=== PATIENT | male | born 1935 | race Caucasian/White ===

== ENCOUNTER 2024-01-10 19:40 | Inpatient (IN) ==
--- NOTE | 2024-01-10 19:57 | Emergency Department Note ---
Impression & Plan Pneumonia ADMIT ED Provider Note HPI: History obtained from patient. 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 Patient stated his cough is gotten the point where he is having trouble breathing at home. Patient denies any chest pain, denies any fever. Patient does exhibit a harsh cough on arrival. ROS: - Per HPI Differential Diagnosis: Sepsis, pneumonia, viral upper respiratory infection with cough, COPD exacerbation, symptomatic anemia,, amongst other potential pathologies. *Outpatient medications and allergy history reviewed. 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 Patient had desaturations to 88 to 89% while here in the ED with his coughing bouts and therefore was placed on nasal cannula oxygen with good improvement. Lab work shows a leukocytosis of 15.2, hemoglobin is reduced at 7.9 which appears to be slightly worse than the patient's baseline, he was therefore ordered 1 unit packed red blood cells. Venous blood gas shows a normal pH. CMP shows baseline chronic kidney disease, troponin is mildly elevated at 31.5, BNP is mildly elevated at 418. Chest x-ray does appear to show a left-sided pneumonia per my interpretation. Viral panel testing was obtained and the patient is positive for enterovirus/rhinovirus. I suspect he likely started as a viral infection and has now a superimposed bacterial pneumonia with his leukocytosis, he does have coarse bilateral breath sounds with some expiratory wheezing and therefore was given a breathing treatment here in the ED. The patient remained otherwise stable on nasal cannula oxygen, with his symptomatic anemia, shortness of breath, and evidence of pneumonia on chest x-ray I do feel he should be admitted to the hospital for further care. Patient's presentation was discussed with the on-call hospitalist, Dr. Sharpe, and the patient was placed for admission in stable condition. Consultants/Discussions held with other healthcare providers: -Hospitalist, Dr. Sharpe Disposition discussion held by myself with: -Patient Diagnosis: 1. Symptomatic anemia, acute 2. Left-sided pneumonia, acute 3. Leukocytosis, acute 4. Cough, acute 5. Enterovirus/rhinovirus PCR testing positive, acute 6. Elevated high-sensitivity troponin level, acute Disposition: Admission Maicol Pike DO Emergency Medicine Past Med/Surg History Problem List (Updated 01/11/24 @ 01:28 by Maicol Pike DO) Pneumonia (Acute) Spinal stenosis, lumbar region with neurogenic claudication (Chronic) High cholesterol HTN (hypertension), benign Medical History (Updated 01/11/24 @ 01:28 by Maicol Pike DO) Bilateral cataracts Afib Surgical History (System 08/04/19 @ 11:07 by Samia Lam) S/P triple vessel bypass Family History (System 08/04/19 @ 11:07 by Samia Lam) Mother Hypertension Sister Breast cancer Social History (System 08/04/19 @ 11:07 by Samia Lam) Smoking Status: Never smoker Preferred Language: Malawian Communication Ability: Effective Visual Impairment: Limited Hearing Ability: Normal Edge Stripper Required: No Beliefs That Will Affect Care: None marital status: Current Living Situation: Spouse current occupational status: retired Feels Safe at Home: Yes Allergies Allergies Allergy/AdvReac Type Severity Reaction Status Date / Time No Known Allergies Allergy Verified 08/04/19 11:07 Home Meds Home Medications Medication Instructions Recorded Confirmed acetaminophen 500 mg tablet 500 mg PO BID 07/23/19 01/10/24 (Tylenol Extra Strength) aspirin 81 mg tablet,delayed 81 mg PO DAILY 07/23/19 01/10/24 release atorvastatin 40 mg tablet 40 mg PO QPM 07/23/19 01/10/24 cetirizine 5 mg chewable tablet 5 mg PO DAILY PRN Allergy Symptoms 07/23/19 01/10/24 coenzyme Q10 100 mg capsule (Co 100 mg PO DAILY 07/23/19 01/10/24 Q-10) cranberry 1,000 mg capsule 1,000 mg PO DAILY 07/23/19 01/10/24 finasteride 5 mg tablet 5 mg PO DAILY 07/23/19 01/10/24 fluticasone propionate 50 1 sprays intranasal DAILY PRN 07/23/19 01/10/24 mcg/actuation nasal Allergy Symptoms spray,suspension (Flonase Allergy Relief) potassium chloride 10 mEq 10 meq PO DAILY 07/23/19 01/10/24 tablet,extended release (Klor-Con) vitamins A,C,M-cqni-auwzay 4,296 1 cap PO BID 07/23/19 01/10/24 mcg-226 mg-90 mg capsule (PreserVision AREDS) albuterol sulfate 2.5 mg/3 mL mg continuous nebulization PRN 01/10/24 (0.083 %) solution for nebulization Shortness Of Breath Or Wheezing allopurinol 300 mg tablet 300 mg PO QAM 01/10/24 01/10/24 alprazolam 0.5 mg tablet 0.5 mg PO BID PRN Anxiety 01/10/24 01/10/24 azelastine 137 mcg (0.1 %) nasal 2 spray intranasal QAM 01/10/24 01/10/24 spray benzonatate 100 mg capsule 100 mg PO TID PRN Cough 01/10/24 01/10/24 budesonide-formoterol HFA 160 2 puff inhalation DAILY 01/10/24 01/10/24 mcg-4.5 mcg/actuation aerosol inhaler (Symbicort) citalopram 10 mg tablet 10 mg PO QAM 01/10/24 01/10/24 methotrexate sodium 2.5 mg tablet 2.5 mg PO WK 01/10/24 01/10/24 olmesartan 20 mg tablet 20 mg PO QAM 01/10/24 01/10/24 torsemide 20 mg tablet 20 mg PO QAM 01/10/24 01/10/24 Results & Data (ED) Vital Signs Vital Signs - 24 hr 01/10/24 19:33 01/10/24 19:33 01/10/24 19:47 Temperature Temperature Source Pulse Rate Respiratory Rate Respiratory Effort / Characteristics Short of Breath Respiratory Depth Respiratory Pattern Regular Blood Pressure Blood Pressure Mean Blood Pressure Position Pulse Oximetry 92 Oxygen Delivery Method Room Air Room Air Room Air Oxygen Flow Rate 92 92 Sepsis Recent Fever Within 48 Hours Sepsis New/Unexplained Change in Mental Status Sepsis Action Taken by Nursing 01/10/24 19:47 01/10/24 20:00 01/10/24 20:02 Temperature 37.5 C Temperature Source Oral Pulse Rate 101 H 86 84 Respiratory Rate 24 20 Respiratory Effort / Characteristics Short of Breath Respiratory Depth Normal Respiratory Pattern Blood Pressure 164/69 H 136/62 Blood Pressure Mean 100 105 Blood Pressure Position Sitting Pulse Oximetry 92 97 Oxygen Delivery Method Room Air Nasal Cannula Oxygen Flow Rate 4 Sepsis Recent Fever Within 48 Hours No Sepsis New/Unexplained Change in Mental Status No Sepsis Action Taken by Nursing Physician Notified 01/10/24 20:30 01/10/24 21:00 01/10/24 21:30 Temperature Temperature Source Pulse Rate 79 85 70 Respiratory Rate 18 20 20 Respiratory Effort / Characteristics Respiratory Depth Respiratory Pattern Blood Pressure 126/65 133/61 120/54 L Blood Pressure Mean 91 94 92 Blood Pressure Position Pulse Oximetry 96 99 99 Oxygen Delivery Method Nasal Cannula Nasal Cannula Nasal Cannula Oxygen Flow Rate 4 4 4 Sepsis Recent Fever Within 48 Hours Sepsis New/Unexplained Change in Mental Status Sepsis Action Taken by Nursing Laboratory Data 01/10/24 19:49 01/10/24 19:49 Lab Results 01/10/24 01/10/24 01/10/24 Range/Units 19:44 19:49 21:03 WBC 15.20 H (4.8-10.8) K/ul RBC 2.12 L (4.70-6.10) M/uL Hgb 7.9 L (14.0-18.0) g/dl Hct 24.1 L (42.0-52.0) % MCV 113.7 H (80.0-100.0) fL MCH 37.3 H (25.0-34.0) pg MCHC 32.8 (32.0-36.0) g/dL RDW Std Deviation 63.6 H (36.4-46.3) fL RDW Coeff of Ant 15.3 H (11.5-14.5) % Plt Count 367 (130-400) K/uL MPV 9.0 L (9.4-12.4) fL Immature Gran % (Auto) 0.4 % Neut % (Auto) 83.1 % Lymph % (Auto) 5.3 % [place] % (Auto) 5.6 % Eos % (Auto) 5.3 % Baso % (Auto) 0.3 % Neut # (Auto) 12.63 H (1.40-6.50) K/uL Lymph # (Auto) 0.81 L (1.20-3.40) K/uL [place] # (Auto) 0.85 H (0.11-0.59) K/uL Eos # (Auto) 0.80 H (0.00-0.50) K/uL Baso # (Auto) 0.05 (0.00-0.20) K/uL Immature Gran # (Auto) 0.06 (0.01-0.20) K/uL Poikilocytosis Present Tear Drop Cells 1+ Ovalocytes 2+ PT 11.2 (9.0-12.0) Seconds INR 1.0 (0.9-1.1) VBG pH 7.39 (7.36-7.41) VBG pCO2 40 (38-50) mmHg VBG pO2 47 mmHg VBG HCO3 24 mmol/L VBG O2 Saturation 78.7 % VBG Base Excess -0.7 mEq/L Sodium 134 L (136-145) mmol/L Potassium 4.8 (3.5-5.1) mmol/L Chloride 102 (98-107) mmol/L Carbon Dioxide 24 (21-32) mmol/L Anion Gap 8 (3-11) BUN 31 H (6-23) mg/dl Creatinine 2.19 H (0.6-1.4) mg/dl Est Cr Clr Drug Dosing 29.6 ml/min eGFR 28.61 BUN/Creatinine Ratio 14.2 (10-20) Glucose 123 H (70-99(Fasting)) mg/dl Calcium 8.9 (8.6-10.3) mg/dl Magnesium 1.8 (1.7-2.4) mg/dl Total Bilirubin 0.5 (0.2-1.0) mg/dl AST 26 (13-39) U/L ALT 27 (7-52) U/L Alkaline Phosphatase 83 (34-104) U/L Troponin I High Sens 31.5 H (0-20) pg/ml B-Natriuretic Peptide 418 H (0-100) pg/ml Total Protein 6.5 (6.0-8.3) gm/dl Albumin 3.9 (3.4-5.0) gm/dl Globulin 2.6 (2.5-4.0) gm/dl Albumin/Globulin Ratio 1.5 (0.9-2) Adenovirus (PCR) Not Detected (NotDetected) B. pertussis DNA (PCR) Not Detected (NotDetected) B.parapertussis DNA PCR Not Detected (NotDetected) C. pneumoniae DNA (PCR) Not Detected (NotDetected) Coronavirus OC43 (PCR) Not Detected (NotDetected) Coronavirus HKU1 (PCR) Not Detected (NotDetected) Coronavirus 229E (PCR) Not Detected (NotDetected) SARS-CoV-2 (PCR) Not Detected (NotDetected) Coronavirus NL63 (PCR) Not Detected (NotDetected) Human Metapneumovir PCR Not Detected (NotDetected) Influenza Type A (PCR) Not Detected (NotDetected) Influenza Type B (PCR) Not Detected (NotDetected) M. pneumoniae (PCR) Not Detected (NotDetected) Parainfluenza 1 (PCR) Not Detected (NotDetected) Parainfluenza 2 (PCR) Not Detected (NotDetected) Parainfluenza 3 (PCR) Not Detected (NotDetected) Parainfluenza 4 (PCR) Not Detected (NotDetected) RSV (PCR) Not Detected (NotDetected) Entero/Rhino (PCR) DETECTED A (NotDetected) Blood Type Blood Type Recheck Antibody Screen Crossmatch 01/10/24 01/10/24 Range/Units 21:12 21:13 WBC (4.8-10.8) K/ul RBC (4.70-6.10) M/uL Hgb (14.0-18.0) g/dl Hct (42.0-52.0) % MCV (80.0-100.0) fL MCH (25.0-34.0) pg MCHC (32.0-36.0) g/dL RDW Std Deviation (36.4-46.3) fL RDW Coeff of Ant (11.5-14.5) % Plt Count (130-400) K/uL MPV (9.4-12.4) fL Immature Gran % (Auto) % Neut % (Auto) % Lymph % (Auto) % [place] % (Auto) % Eos % (Auto) % Baso % (Auto) % Neut # (Auto) (1.40-6.50) K/uL Lymph # (Auto) (1.20-3.40) K/uL [place] # (Auto) (0.11-0.59) K/uL Eos # (Auto) (0.00-0.50) K/uL Baso # (Auto) (0.00-0.20) K/uL Immature Gran # (Auto) (0.01-0.20) K/uL Poikilocytosis Tear Drop Cells Ovalocytes PT (9.0-12.0) Seconds INR (0.9-1.1) VBG pH (7.36-7.41) VBG pCO2 (38-50) mmHg VBG pO2 mmHg VBG HCO3 mmol/L VBG O2 Saturation % VBG Base Excess mEq/L Sodium (136-145) mmol/L Potassium (3.5-5.1) mmol/L Chloride (98-107) mmol/L Carbon Dioxide (21-32) mmol/L Anion Gap (3-11) BUN (6-23) mg/dl Creatinine (0.6-1.4) mg/dl Est Cr Clr Drug Dosing ml/min eGFR BUN/Creatinine Ratio (10-20) Glucose (70-99(Fasting)) mg/dl Calcium (8.6-10.3) mg/dl Magnesium (1.7-2.4) mg/dl Total Bilirubin (0.2-1.0) mg/dl AST (13-39) U/L ALT (7-52) U/L Alkaline Phosphatase (34-104) U/L Troponin I High Sens (0-20) pg/ml B-Natriuretic Peptide (0-100) pg/ml Total Protein (6.0-8.3) gm/dl Albumin (3.4-5.0) gm/dl Globulin (2.5-4.0) gm/dl Albumin/Globulin Ratio (0.9-2) Adenovirus (PCR) (NotDetected) B. pertussis DNA (PCR) (NotDetected) B.parapertussis DNA PCR (NotDetected) C. pneumoniae DNA (PCR) (NotDetected) Coronavirus OC43 (PCR) (NotDetected) Coronavirus HKU1 (PCR) (NotDetected) Coronavirus 229E (PCR) (NotDetected) SARS-CoV-2 (PCR) (NotDetected) Coronavirus NL63 (PCR) (NotDetected) Human Metapneumovir PCR (NotDetected) Influenza Type A (PCR) (NotDetected) Influenza Type B (PCR) (NotDetected) M. pneumoniae (PCR) (NotDetected) Parainfluenza 1 (PCR) (NotDetected) Parainfluenza 2 (PCR) (NotDetected) Parainfluenza 3 (PCR) (NotDetected) Parainfluenza 4 (PCR) (NotDetected) RSV (PCR) (NotDetected) Entero/Rhino (PCR) (NotDetected) Blood Type O Positive Blood Type Recheck O Positive Antibody Screen NEGATIVE Crossmatch See Detail Administered Medications Discontinued Medications Albuterol (Albut/Ipratrop 3mg/0.5mg Neb 3 Ml Vial) 3 ml NEB NOW STA; Protocol Stop: 01/10/24 19:57 Last Admin: 01/10/24 20:03 Dose: 3 ml Documented By: TAMARA Ceftriaxone Sodium (Rocephin) 2,000 mg in 50 mls @ 100 mls/hr IV NOW STA Stop: 01/10/24 21:35 Last Infusion: 01/10/24 21:51 Dose: Infused Documented By: Admin: 01/10/24 21:21 Dose: 100 mls/hr Documented By: TAMARA Doxycycline Hyclate 100 mg/ (Dextrose) 100 mls @ 50 mls/hr IV ONE ONE Stop: 01/10/24 23:29 Last Admin: 01/10/24 21:55 Dose: 50 mls/hr Documented By: TAMARA Magnesium Sulfate/Dextrose (Magnesium Sulfate / D5w) 1 gm in 100 mls @ 50 mls/hr IV ONE ONE Stop: 01/11/24 00:29 Last Admin: 01/10/24 22:47 Dose: 50 mls/hr Documented By: TAMARA Methylprednisolone (Methylprednisolone 125 Mg/2 Ml Vial) 40 mg IV NOW STA Stop: 01/10/24 22:18 Last Admin: 01/10/24 22:42 Dose: 40 mg Documented By: TAMARA Imaging Data Radiologist's Impression: Chest X-Ray 01/10/24 19:55 Exam(s): XR CXR 1 VIEW EXAM: XR Chest, 1 View CLINICAL HISTORY: Dyspnea. TECHNIQUE: Frontal view of the chest. COMPARISON: No relevant prior studies available. FINDINGS: Lungs: Bilateral airspace opacities may represent pulmonary edema and/or atypical infection. Pleural space: Moderate left pleural effusion. No pneumothorax. Heart: Cardiomegaly. Mediastinum: Unremarkable. Normal mediastinal contour. Bones/joints: Degenerative changes of the spine are noted. No acute fracture. Other findings: There is a left [id number]. IMPRESSION: 1. Bilateral airspace opacities may represent pulmonary edema and/or atypical infection. 2. Cardiomegaly. 3. Moderate left pleural effusion. Electronically signed by: Carolina Cabello MD 01/10/24 22:26 PM Discharge Plan Visit Data Chief Complaint: Shortness of Breath/Dyspnea Stated Complaint: Shortness of Breath/Dyspnea ED Provider: Maicol Pike Discharge Problem: Pneumonia Patient Disposition: Admitted As Inpatient Discharge Instructions Interventions: ED Discharge Assessment Last Done: 01/10/24 22:55
[2024-01-10] MEDS: ALBUT/IPRATROP 3MG/0.5MG NEB 3 ML VIAL NEB STA (20:03)
[2024-01-10 20:11] LABS: Basophils # (auto) 0.05 K/uL (0.00-0.20); Basophils % (auto) 0.3 %; Eosinophils % (auto) 5.3 %; Hematocrit (blood only) 24.1 % (42.0-52.0); Hemoglobin 7.9 g/dl (14.0-18.0); Immature Granulocytes # (auto) 0.06 K/uL (0.01-0.20); Immature Granulocytes % (auto) 0.4 %; Lymphocytes # (auto) 0.81 K/uL (1.20-3.40); Lymphocytes % (auto) 5.3 %; Mean Corpuscular Hemoglobin 37.3 pg (25.0-34.0); Mean Corpuscular Hgb Conc 32.8 g/dL (32.0-36.0); Mean Corpuscular Volume 113.7 fL (80.0-100.0); Monocytes # (auto) 0.85 K/uL (0.11-0.59); Monocytes % (auto) 5.6 %; Neutrophils # (auto) 12.63 K/uL (1.40-6.50); Neutrophils % (auto) 83.1 %; Platelet Count 367 K/uL (130-400); RDW Coefficient of Variation 15.3 % (11.5-14.5); RDW Standard Deviation 63.6 fL (36.4-46.3); Red Blood Count 2.12 M/uL (4.70-6.10)
[2024-01-10 20:30] LABS: Albumin Globulin Ratio 1.5 (0.9-2); Albumin Level 3.9 gm/dl (3.4-5.0); BUN Creatinine Ratio 14.2 (10-20); Bilirubin,Total 0.5 mg/dl (0.2-1.0); Calcium 8.9 mg/dl (8.6-10.3); Creatinine Clr Calc Pharmacy 29.6 ml/min; Globulin 2.6 gm/dl (2.5-4.0); Potassium 4.8 mmol/L (3.5-5.1); Total Protein 6.5 gm/dl (6.0-8.3)
[2024-01-10 20:35] LABS: Ovalocytes 2+; Poikilocytosis Present; Tear Drop Cells 1+
[2024-01-10 20:37] LABS: Troponin I High Sensitivity 31.5 pg/ml (0-20)
[2024-01-10 20:47] LABS: Prothrombin Time 11.2 Seconds (9.0-12.0)
[2024-01-10] MEDS ORDERED: SODIUM CHLORIDE 0.9% 50 ML IV PRN (20:51)
[2024-01-10 20:53] LABS: Adenovirus PCR Not Detected (NotDetected); Bordetella parapertussis PCR Not Detected (NotDetected); Bordetella pertussis PCR Not Detected (NotDetected); Chlamydia pneumoniae PCR Not Detected (NotDetected); Coronavirus 229E PCR Not Detected (NotDetected); Coronavirus CoV-2 (COVID19)PCR Not Detected (NotDetected); Coronavirus HKU1 PCR Not Detected (NotDetected); Coronavirus NL63 PCR Not Detected (NotDetected); Coronavirus OC43PCR Not Detected (NotDetected); Human Metapneumovirus PCR Not Detected (NotDetected); Influenza A PCR Not Detected (NotDetected); Influenza B PCR Not Detected (NotDetected); Mycoplasma pneumoniae PCR Not Detected (NotDetected); Parainfluenza Virus 1 PCR Not Detected (NotDetected); Parainfluenza Virus 2 PCR Not Detected (NotDetected); Parainfluenza Virus 3 PCR Not Detected (NotDetected); Parainfluenza Virus 4 PCR Not Detected (NotDetected); Respiratory Syncytial VirusPCR Not Detected (NotDetected); Rhinovirus/Enterovirus PCR DETECTED (NotDetected)
[2024-01-10] MEDS ORDERED: AZITHROMYCIN 500 MG VIAL IV ONE (21:06)
[2024-01-10] MEDS ORDERED: AZITHROMYCIN 500 MG in SODIUM CHLORIDE 0.9% 250 ML IV ONE (21:06)
[2024-01-10 21:13] LABS: Base Excess VBG -0.7 mEq/L; HCO3 VBG 24 mmol/L; Oxygen Saturation VBG 78.7 %; PCO2 VBG 40 mmHg (38-50); PO2 VBG 47 mmHg; pH VBG 7.39 (7.36-7.41)
[2024-01-10] MEDS: cefTRIAXone SODIUM 2,000 MG/50 ML BAG IV STA (21:21)
[2024-01-10 21:43] LABS: Magnesium 1.8 mg/dl (1.7-2.4)
--- NOTE | 2024-01-10 21:46 | History & Physical Report ---
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 Heparin subcu Full code Patient expressed dissatisfaction with current [facility] PCP and oncologist. He has decided to follow-up Dr. Goss of [facility] for oncology. Expressed interest in setting up PCP services with [facility] following discharge. Text document was generated using [employer] voice recognition software. It may contain grammatical or spelling errors. Kindly contact undersigned for clarification of any documentation item in question. History of Present Illness Chief Complaint: Worsening cough, SOB. Primary Care Provider: Willi Staley MD History obtained from patient and records. 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 4 months history of junky cough symptoms with congestion and SOB. Denies aspiration. No weight gain as per patient. No chest pain. Outpatient chest x-ray last September 2023 showed 1. Distortion/scarring at the left lateral costophrenic sulcus is unchanged on the frontal view however the posterior costophrenic sulcus is newly blunted, potentially reflecting combination of a new, small pleural effusion and underlying pleuroparenchymal scarring postoperatively. 2. 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 Advair initiated for airway inflammation and outpatient course of Augmentin and prednisone prescribed by [facility] imaging technologist for bronchitis/sinusitis. Minimal response to treatment as per patient. Worsening symptoms noted the past week. Junky cough productive of yellow green sputum. Not sure about sick contacts. Left leg more swollen than usual. Denies abdominal pain, denies black/bloody stools/hematuria. Chronic back pain as per patient. Ceftriaxone and 1 unit administered at the ER. Medical History as above Surgical History : Back surgery, carpal tunnel surgery, dental surgery, CABG, vascular procedures, tonsillectomy, cataract surgery Family History : Heart disease, breast cancer, stomach cancer Personal/Social history : Non-smoker, occasional EtOH intake, retired businessman Allergies Allergy/AdvReac Type Severity Reaction Status Date / Time No Known Allergies Allergy Verified 08/04/19 11:07 Home Medications Medication Instructions Recorded Confirmed Type acetaminophen 500 mg tablet 500 mg PO BID 07/23/19 01/10/24 History (Tylenol Extra Strength) aspirin 81 mg tablet,delayed 81 mg PO DAILY 07/23/19 01/10/24 History release atorvastatin 40 mg tablet 40 mg PO QPM 07/23/19 01/10/24 History cetirizine 5 mg chewable tablet 5 mg PO DAILY PRN Allergy Symptoms 07/23/19 01/10/24 History coenzyme Q10 100 mg capsule (Co 100 mg PO DAILY 07/23/19 01/10/24 History Q-10) cranberry 1,000 mg capsule 1,000 mg PO DAILY 07/23/19 01/10/24 History finasteride 5 mg tablet 5 mg PO DAILY 07/23/19 01/10/24 History fluticasone propionate 50 1 sprays intranasal DAILY PRN 07/23/19 01/10/24 History mcg/actuation nasal Allergy Symptoms spray,suspension (Flonase Allergy Relief) potassium chloride 10 mEq 10 meq PO DAILY 07/23/19 01/10/24 History tablet,extended release (Klor-Con) vitamins A,C,A-prau-ddixva 4,296 1 cap PO BID 07/23/19 01/10/24 History mcg-226 mg-90 mg capsule (PreserVision AREDS) albuterol sulfate 2.5 mg/3 mL mg continuous nebulization PRN 01/10/24 History (0.083 %) solution for nebulization Shortness Of Breath Or Wheezing allopurinol 300 mg tablet 300 mg PO QAM 01/10/24 01/10/24 History alprazolam 0.5 mg tablet 0.5 mg PO BID PRN Anxiety 01/10/24 01/10/24 History azelastine 137 mcg (0.1 %) nasal 2 spray intranasal QAM 01/10/24 01/10/24 History spray benzonatate 100 mg capsule 100 mg PO TID PRN Cough 01/10/24 01/10/24 History budesonide-formoterol HFA 160 2 puff inhalation DAILY 01/10/24 01/10/24 History mcg-4.5 mcg/actuation aerosol inhaler (Symbicort) citalopram 10 mg tablet 10 mg PO QAM 01/10/24 01/10/24 History methotrexate sodium 2.5 mg tablet 2.5 mg PO WK 01/10/24 01/10/24 History olmesartan 20 mg tablet 20 mg PO QAM 01/10/24 01/10/24 History torsemide 20 mg tablet 20 mg PO QAM 01/10/24 01/10/24 History Past Med/Surg History Problem List (Updated 01/11/24 @ 03:26 by Bryce Sharpe MD) Sepsis Pneumonia (Acute) Spinal stenosis, lumbar region with neurogenic claudication (Chronic) High cholesterol HTN (hypertension), benign Medical History (Updated 01/11/24 @ 03:26 by Bryce Sharpe MD) Bilateral cataracts Afib Surgical History (System 08/04/19 @ 11:07 by Samia Lam) S/P triple vessel bypass Family History (System 08/04/19 @ 11:07 by Samia Lam) Mother Hypertension Sister Breast cancer Social History (System 08/04/19 @ 11:07 by Samia Lam) Smoking Status: Never smoker Hx Alcohol Use: Yes Alcohol type: beer Hx Substance Use: No Preferred Language: Latvian Communication Ability: Effective Visual Impairment: Limited Hearing Ability: Normal 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 Beliefs That Will Affect Care: None marital status: Current Living Situation: Spouse Current Living Situation Comment: lives with at [facility] home current occupational status: retired Other Information That Helps Us Care for You: No Feels Safe at Home: Yes Safety Concerns: Feels Safe At This Time Assistive Devices: Denture - Upper, Denture - Lower and Walker Review of Systems Review of Systems: As per HPI, all other systems reviewed and negative Physical Exam Physical Exam: GENERAL: Comfortable, obese, no respiratory distress SKIN: Pallor color, warm HEENT: Alopecia, pale palpebral conjunctivae, no ptosis, dry buccal mucosa, nasal cannula in place NECK : Supple, short neck, no tenderness CHEST : Diffuse expiratory wheezes,, no tenderness HEART : RRR, no obvious murmurs ABDOMEN: Some distention, nontender EXTREMITIES : LE swelling (left greater than the right), no LE tenderness, no other conspicuous deformities noted NEUROLOGIC : Coherent, no facial asymmetry, episodic right hand involuntary movement Results & Data Results & Data Vital Signs (Past 12 Hours) Vital Signs Temp Pulse Resp BP Pulse Ox O2 Del Method O2 Flow Rate 01/10/24 20:30 79 18 126/65 96 Nasal Cannula 4 01/10/24 20:02 84 01/10/24 20:00 86 20 136/62 97 Nasal Cannula 4 01/10/24 19:47 37.5 C 101 H 24 164/69 H 92 Room Air 01/10/24 19:47 Room Air 92 01/10/24 19:33 Room Air 92 01/10/24 19:33 92 Room Air Laboratory Results Laboratory Results WBC 15.20 K/ul (4.8-10.8) H 01/10/24 19:49 RBC 2.12 M/uL (4.70-6.10) L 01/10/24 19:49 Hgb 7.9 g/dl (14.0-18.0) L 01/10/24 19:49 Hct 24.1 % (42.0-52.0) L 01/10/24 19:49 MCV 113.7 fL (80.0-100.0) H 01/10/24 19:49 MCH 37.3 pg (25.0-34.0) H 01/10/24 19:49 MCHC 32.8 g/dL (32.0-36.0) 01/10/24 19:49 RDW Std Deviation 63.6 fL (36.4-46.3) H 01/10/24 19:49 RDW Coeff of Ant 15.3 % (11.5-14.5) H 01/10/24 19:49 Plt Count 367 K/uL (130-400) 01/10/24 19:49 MPV 9.0 fL (9.4-12.4) L 01/10/24 19:49 Immature Gran % (Auto) 0.4 % 01/10/24 19:49 Neut % (Auto) 83.1 % 01/10/24 19:49 Lymph % (Auto) 5.3 % 01/10/24 19:49 [place] % (Auto) 5.6 % 01/10/24 19:49 Eos % (Auto) 5.3 % 01/10/24 19:49 Baso % (Auto) 0.3 % 01/10/24 19:49 Neut # (Auto) 12.63 K/uL (1.40-6.50) H 01/10/24 19:49 Lymph # (Auto) 0.81 K/uL (1.20-3.40) L 01/10/24 19:49 Ing[place] # (Auto) 0.85 K/uL (0.11-0.59) H 01/10/24 19:49 Eos # (Auto) 0.80 K/uL (0.00-0.50) H 01/10/24 19:49 Baso # (Auto) 0.05 K/uL (0.00-0.20) 01/10/24 19:49 Immature Gran # (Auto) 0.06 K/uL (0.01-0.20) 01/10/24 19:49 Poikilocytosis Present 01/10/24 19:49 Tear Drop Cells 1+ 01/10/24 19:49 Ovalocytes 2+ 01/10/24 19:49 PT 11.2 Seconds (9.0-12.0) 01/10/24 19:49 INR 1.0 (0.9-1.1) 01/10/24 19:49 VBG pH 7.39 (7.36-7.41) 01/10/24 21:03 VBG pCO2 40 mmHg (38-50) 01/10/24 21:03 VBG pO2 47 mmHg 01/10/24 21:03 VBG HCO3 24 mmol/L 01/10/24 21:03 VBG O2 Saturation 78.7 % 01/10/24 21:03 VBG Base Excess -0.7 mEq/L 01/10/24 21:03 Sodium 134 mmol/L (136-145) L 01/10/24 19:49 Potassium 4.8 mmol/L (3.5-5.1) 01/10/24 19:49 Chloride 102 mmol/L (98-107) 01/10/24 19:49 Carbon Dioxide 24 mmol/L (21-32) 01/10/24 19:49 Anion Gap 8 (3-11) 01/10/24 19:49 BUN 31 mg/dl (6-23) H 01/10/24 19:49 Creatinine 2.19 mg/dl (0.6-1.4) H 01/10/24 19:49 Est Cr Clr Drug Dosing 29.6 ml/min 01/10/24 19:49 eGFR 28.61 01/10/24 19:49 BUN/Creatinine Ratio 14.2 (10-20) 01/10/24 19:49 Glucose 123 mg/dl (70-99(Fasting)) H 01/10/24 19:49 Calcium 8.9 mg/dl (8.6-10.3) 01/10/24 19:49 Magnesium 1.8 mg/dl (1.7-2.4) 01/10/24 19:49 Total Bilirubin 0.5 mg/dl (0.2-1.0) 01/10/24 19:49 AST 26 U/L (13-39) 01/10/24 19:49 ALT 27 U/L (7-52) 01/10/24 19:49 Alkaline Phosphatase 83 U/L (34-104) 01/10/24 19:49 Troponin I High Sens 31.5 pg/ml (0-20) H 01/10/24 19:49 B-Natriuretic Peptide 418 pg/ml (0-100) H 01/10/24 19:49 Total Protein 6.5 gm/dl (6.0-8.3) 01/10/24 19:49 Albumin 3.9 gm/dl (3.4-5.0) 01/10/24 19:49 Globulin 2.6 gm/dl (2.5-4.0) 01/10/24 19:49 Albumin/Globulin Ratio 1.5 (0.9-2) 01/10/24 19:49 Adenovirus (PCR) Not Detected (NotDetected) 01/10/24 19:44 B. pertussis DNA (PCR) Not Detected (NotDetected) 01/10/24 19:44 B.parapertussis DNA PCR Not Detected (NotDetected) 01/10/24 19:44 C. pneumoniae DNA (PCR) Not Detected (NotDetected) 01/10/24 19:44 Coronavirus OC43 (PCR) Not Detected (NotDetected) 01/10/24 19:44 Coronavirus HKU1 (PCR) Not Detected (NotDetected) 01/10/24 19:44 Coronavirus 229E (PCR) Not Detected (NotDetected) 01/10/24 19:44 SARS-CoV-2 (PCR) Not Detected (NotDetected) 01/10/24 19:44 Coronavirus NL63 (PCR) Not Detected (NotDetected) 01/10/24 19:44 Human Metapneumovir PCR Not Detected (NotDetected) 01/10/24 19:44 Influenza Type A (PCR) Not Detected (NotDetected) 01/10/24 19:44 Influenza Type B (PCR) Not Detected (NotDetected) 01/10/24 19:44 M. pneumoniae (PCR) Not Detected (NotDetected) 01/10/24 19:44 Parainfluenza 1 (PCR) Not Detected (NotDetected) 01/10/24 19:44 Parainfluenza 2 (PCR) Not Detected (NotDetected) 01/10/24 19:44 Parainfluenza 3 (PCR) Not Detected (NotDetected) 01/10/24 19:44 Parainfluenza 4 (PCR) Not Detected (NotDetected) 01/10/24 19:44 RSV (PCR) Not Detected (NotDetected) 01/10/24 19:44 Entero/Rhino (PCR) DETECTED (NotDetected) A 01/10/24 19:44 Crossmatch See Detail 01/10/24 21:12 CT chest: 1. Bilateral airspace opacities throughout both lungs likely represent atypical infection. 2. Filling defects of the bronchi of the lower lobes may represent mucous plugs and/or aspiration. 3. There is dilation of the pulmonary arteries. This is concerning for pulmonary artery hypertension. Diagnostic Findings EKG as per my interpretation :Rate 90, NSR, normal axis, RBBB, inferior infarct, no ischemia Code Status & VTE Plan VTE Prophylaxis Plan VTE Prophylaxis will be ordered: Yes
[2024-01-10] MEDS: DOXYCYCLINE HYCLATE 100 MG in DEXTROSE 5% MINI-B 100 ML IV ONE (21:55)
[2024-01-10] MEDS ORDERED: oxyCODONE HCL IR 5 MG TAB (IMMEDIATE RELEASE) PO PRN (22:25)
[2024-01-10] MEDS ORDERED: PROMETHAZINE 12.5 MG/50.5 ML BAG IV PRN (22:25)
--- NOTE | 2024-01-10 22:27 | XRay Report ---
Exam(s): XR CXR 1 VIEW EXAM: XR Chest, 1 View CLINICAL HISTORY: Dyspnea. TECHNIQUE: Frontal view of the chest. COMPARISON: No relevant prior studies available. FINDINGS: Lungs: Bilateral airspace opacities may represent pulmonary edema and/or atypical infection. Pleural space: Moderate left pleural effusion. No pneumothorax. Heart: Cardiomegaly. Mediastinum: Unremarkable. Normal mediastinal contour. Bones/joints: Degenerative changes of the spine are noted. No acute fracture. Other findings: There is a left [id number]. IMPRESSION: 1. Bilateral airspace opacities may represent pulmonary edema and/or atypical infection. 2. Cardiomegaly. 3. Moderate left pleural effusion. Electronically signed by: Carolina Cabello MD 01/10/24 22:26 PM
[2024-01-10] MEDS: methylPREDNISolone 125 MG/2 ML VIAL IV STA (22:42)
[2024-01-10] MEDS ORDERED: ALPRAZolam 0.5 MG TABLET PO PRN (22:45)
[2024-01-10] MEDS: MAGNESIUM SULFATE / D5W 1 GM/100 ML BAG IV ONE (22:47)
--- NOTE | 2024-01-11 00:27 | CT Scan Report ---
Exam(s): CT CHEST Without Contrast EXAM: CT Chest Without Intravenous Contrast CLINICAL HISTORY: Pleural effusion. TECHNIQUE: Axial computed tomography images of the chest without intravenous contrast. CTDI is 22.29 mGy and DLP is 713.41 mGy-cm. Automated exposure control was utilized for the study. A dose lowering technique was utilized adhering to the principles of ALARA. COMPARISON: Chest radiograph 01/10/2024 FINDINGS: Lungs: Bilateral airspace opacities throughout both lungs likely represent atypical infection. Filling defects of the bronchi of the lower lobes may represent mucous plugs and/or aspiration. Pleural space: Unremarkable. No pneumothorax. No significant effusion. Heart: Coronary artery calcifications are present. No cardiomegaly. No significant pericardial effusion. Bones/joints: There are degenerative changes of the spine. No acute fracture. No dislocation. Soft tissues: Unremarkable. Vasculature: There is dilation of the pulmonary arteries. Mild atherosclerosis. The main body artery measures 4.1 cm. Lymph nodes: Unremarkable. No enlarged lymph nodes. IMPRESSION: 1. Bilateral airspace opacities throughout both lungs likely represent atypical infection. 2. Filling defects of the bronchi of the lower lobes may represent mucous plugs and/or aspiration. 3. There is dilation of the pulmonary arteries. This is concerning for pulmonary artery hypertension. Electronically signed by: Carolina Cabello MD 01/11/24 00:26 AM
[2024-01-11 01:09] LABS: Appearance Urine Cloudy (Clear); Bacteria Urine Automated 1+ (None Seen); Bilirubin Urine Negative (Negative); Blood Urine Negative (Negative); Color Urine Yellow; Epithelial Cell Urine Auto 0-2 /hpf (0-2); Glucose Urine UA Negative (Negative); Ketones Urine Trace (Negative); Leukocyte Esterase Urine 3+ (Negative); Nitrite Urine Negative (Negative); Protein Urine 1+ (Negative); RBC Urine Automated 0-2 /hpf (0-2); Specific Gravity Urine 1.018 (1.000-1.030); Urobilinogen Urine Negative (Negative); WBC Urine Automated >50 /hpf (0-5)
[2024-01-11] MEDS: SODIUM CHLORIDE 0.9% 100 ML IV PRN (01:22)
--- NOTE | 2024-01-11 01:22 | Ultrasound Report ---
EXAM: US venous doppler LE BI CLINICAL HISTORY: HX: NO PREV. LEG SWELLING. LEFT LEG PAIN WHEN WALKING. TECH NOTES: NO OBVIOUS DVT B/L LE. EDEMA BILAT CALVES. INCIDENTAL FINDING: STENOSIS PROX SFA WITH ?POSSIBLE OCCLUSION LEFT MID SFA. PROX SFA: 219 cm/s MID SFA: FLOW ONLY VIS WITH PULSED DOPPLER AND IT IS MONOPHASIC AND LOW VELOCITY, 8.2 cm/s. DIST SFA: *REVERSED FLOW 20 cm/s POP A PROX: LOW VELOCITY, MONOPHASIC 32.2 cm/s TECHNIQUE: Ultrasound examination of bilateral lower extremity veins was performed in real-time and duplex. One or more of the following were performed- spectral analysis, resistive index, waveform analysis, and pulsed Doppler. COMPARISON: None. FINDINGS: Normal phasic, non-pulsatile, and spontaneous flow is noted in bilateral common femoral, superficial femoral, popliteal, and posterior/anterior tibial and peroneal veins. Visualized veins of both lower extremities demonstrate normal compressibility. No sonographic evidence of acute deep vein thrombosis (DVT) is detected in the visualized veins of both lower extremities. Compression and Augmentation: All evaluated veins compress fully with applied transducer pressure. Augmentation of venous flow is noted with distal compression. Additional Findings: No evidence of intraluminal thrombus. Mild subcutaneous soft tissue edema noted in both distal legs, more marked on the left side. Incidental note is made of slightly echogenic material within left SFA with possible occlusion of left mid SFA. Proximal SFA 219 cm/s Mid SFA: fluoroscopy only visualized with pulsed Doppler, which is monophasic and showing low velocity-8.2 cm/s Distal SFA: Is showing reversed flow 20 cm/s Popliteal artery proximal: monophasic 32.2 cm/s IMPRESSION: No sonographic evidence of acute DVT detected in bilateral common femoral, superficial femoral, popliteal and posterior tibial and peroneal veins, at the time of examination. Incidental note is made of severe arterial insufficiency in left SFA and proximal popliteal artery. Suspected occlusion of the mid SFA. Further assessment with dedicated left lower extremity duplex arterial scan is recommended. Mild subcutaneous soft tissue edema noted in both legs, more marked on the left side. Disclaimer: DVT could be missed early in the disease when clot burden is minimal. For patients with moderate and high pretest probability of DVT and negative ultrasound, the [employer] clinical guidelines recommend testing with a D-dimer assay or repeat ultrasound in 5-7 days. If symptoms worsen, the Society of radiologists in ultrasound recommends repeating ultrasound even earlier. Electronically signed by Fani Fortune 01-11-2024 01:21 AM
[2024-01-11] MEDS: PIPERACILLIN/TAZOBACTAM 4.5 GM/100 ML BAG IV STA (02:07)
[2024-01-11] MEDS: ALBUT/IPRATROP 3MG/0.5MG NEB 3 ML VIAL NEB SCH (02:38)
[2024-01-11] MEDS: HEPARIN SOD 5,000 UNIT/0.5 ML VIAL SQ SCH (05:44)
[2024-01-11 06:33] LABS: Hematocrit (blood only) 24.7 % (42.0-52.0); Mean Corpuscular Hemoglobin 35.7 pg (25.0-34.0); Mean Corpuscular Hgb Conc 32.4 g/dL (32.0-36.0); Mean Corpuscular Volume 110.3 fL (80.0-100.0); Mean Platelet Volume 9.2 fL (9.4-12.4); Platelet Count 302 K/uL (130-400); RDW Coefficient of Variation 17.2 % (11.5-14.5); RDW Standard Deviation 69.6 fL (36.4-46.3); Red Blood Count 2.24 M/uL (4.70-6.10)
[2024-01-11 06:53] LABS: BUN Creatinine Ratio 15.2 (10-20); Calcium 8.5 mg/dl (8.6-10.3); Creatinine Clr Calc Pharmacy 31.4 ml/min; Potassium 4.8 mmol/L (3.5-5.1)
[2024-01-11 06:55] LABS: Basophils # (auto) 0.01 K/uL (0.00-0.20); Basophils % (auto) 0.1 %; Eosinophils # (auto) 0.01 K/uL (0.00-0.50); Eosinophils % (auto) 0.1 %; Immature Granulocytes # (auto) 0.03 K/uL (0.01-0.20); Immature Granulocytes % (auto) 0.2 %; Lymphocytes # (auto) 0.32 K/uL (1.20-3.40); Lymphocytes % (auto) 2.6 %; Macrocytosis Present; Monocytes # (auto) 0.09 K/uL (0.11-0.59); Monocytes % (auto) 0.7 %; Neutrophils # (auto) 11.74 K/uL (1.40-6.50); Neutrophils % (auto) 96.3 %; Ovalocytes 1+; Polychromasia 2+
[2024-01-11 07:00] LABS: Troponin I High Sensitivity 28.3 pg/ml (0-20)
[2024-01-11] MEDS: PIPERACILLIN/TAZOBACTAM 4.5 GM/100 ML BAG IV SCH (07:28)
[2024-01-11 07:33] LABS: Estimated Average Glucose 123 mg/dl; Hemoglobin A1C 5.9 % (4.5-5.6)
--- NOTE | 2024-01-11 09:28 | Ultrasound Report ---
LEFT LOWER EXTREMITY ARTERIAL DOPPLER ULTRASOUND CLINICAL HISTORY: abn venous US result COMPARISON STUDY: Left lower extremity venous Doppler ultrasound January 10, 2024. TECHNIQUE: Bilateral ankle to brachial indices were obtained. Grayscale, color and duplex Doppler son ography of the arterial system of the left lower extremity was then performed. FINDINGS: The right ankle-brachial index measured 1.45 when using the dorsalis pedis and 1.52 when us ing posterior tibial artery. The left ankle-brachial index measured 0.98 when using the dorsalis pedi s. The left posterior tibial artery was noncompressible. These ankle brachial indices are likely amina factually elevated. There is extensive atherosclerotic plaque within the left lower extremity. There is biphasic flow within the left common femoral artery. An elevated peak systolic velocity of 251 cm/ s within the proximal left superficial femoral artery is present. No flow is identified within the mi d to distal left superficial femoral artery consistent with occlusion. There is reconstitution throug h collaterals within the distal left superficial femoral artery. There is monophasic flow within the left popliteal, posterior tibial, peroneal, anterior tibial and dorsalis pedis vessels. IMPRESSION: 1. 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 Distal reconstitut ion through collaterals with monophasic flow within the left calf vessels. Evidence for a stenosis wi thin the proximal left SFA. 2. Extensive atherosclerotic plaque within the left lower extremity. ACT 112: Negative or not required by law. Electronically signed by: Eloy Whitt M.D. 01/11/2024 9:26 AM
[2024-01-11] MEDS ORDERED: DOXYCYCLINE HYCLATE 100 MG in DEXTROSE 5% MINI-B 100 ML IV SCH (10:00)
[2024-01-11] MEDS: LOSARTAN POTASSIUM 50 MG TAB PO SCH (10:04)
[2024-01-11] MEDS: CITALOPRAM 20 MG TAB PO SCH (10:04)
[2024-01-11] MEDS: ASPIRIN 81 MG ECTAB PO SCH (10:05)
[2024-01-11] MEDS: CETIRIZINE HCL 10 MG TABLET PO PRN (10:05)
[2024-01-11] MEDS: DOXYCYCLINE HYCLATE 100 MG CAP PO SCH (10:06)
[2024-01-11] MEDS: predniSONE 20 MG TAB PO SCH (10:06)
[2024-01-11] MEDS: FLUTICASONE/VILANTEROL 200/25MCG 14 PUFFS/INHALER INH SCH (10:07)
[2024-01-11] MEDS: AZELASTINE HCL 0.1% NASAL 200 SPRAYS/27,400 MCG BTL SCH (10:07)
[2024-01-11] MEDS: FINASTERIDE 5 MG TAB PO SCH (10:07)
--- NOTE | 2024-01-11 15:03 | Hospitalist Progress Note ---
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 Patient does report associated symptoms of poor appetite and getting weaker. He is being managed for the following: Likely community-acquired pneumonia Sepsis secondary to above: admitting WBC and respiratory rate elevated. Lactate WNL. 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 Admitting imagings: CXR: Bilateral airspace opacities suggestive of pneumonia. Concern for moderate left pleural effusion. CT chest: Bilateral airspace opacities throughout both lungs suggestive of infection. There is dilatation of pulmonary arteries concerning for pulmonary artery hypertension. No significant pleural effusion noted. Filling defects of the bronchi of the lower lobes may represent mucous plugs and/or aspiration. Follow-up admitting blood and sputum culture. Continue with doxycycline 01/10 and Zosyn 01/10. Add probiotics. Aspiration precautions. Ro aspiration. Speech evaluation Sunday if patient still here or OP speech eval. Solu-Medrol 1 dose at presentation, followed by prednisone course, [facility] RTC for ILD exacerbation. Patient reports improving cough/improving appetite/nausea/reports feeling better. Pulmonology consult if with no improvement. Hold methotrexate during acute illness. Complicated UTI: Patient with burning while passing urine OPTICAL ADVISOR. Patient on antibiotic as above. Follow admitting urine culture. Demand ischemia: Troponin flat trended around 30. Troponin elevation likely secondary to acute illness. Continue with telemetry monitoring. Patient with no chest pain. 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 Distal reconstitution through collaterals with monophasic flow within the left calf vessels. Evidence of stenosis within the proximal left SFA present. Extensive atherosclerotic plaque within the left lower extremity. Follow-up with vascular surgery upon discharge. Other chronic medical conditions: Continue with/resume home meds as and when ab le. 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 5.9 this admission as well. clonus as per records, patient noted to have episodic involuntary movements of the right hand during encounter DVT prophylaxis. Heparin subcu Full code Dispo: PT/OT. CM to assist w/ dc plan. likely in next 2-3 days. Patient expressed dissatisfaction with current [facility] PCP and oncologist. He has decided to follow-up [facility]. Expressed interest in setting up PCP services with [facility] [place] following discharge. Text document was generated using [employer] voice recognition software. It may contain grammatical or spelling errors. Kindly contact undersigned for clarification of any documentation item in question. Admission and Anticipated Discharge Date Admission Date: January 10, 2024 Subjective Patient was seen and examined at bedside. Patient was sitting up in bed, on room air, NAD, resting comfortably. Patient reports no fever or sore throat. Patient reports improving nausea/vomiting/appetite/cough. Patient reports having loose bowel movements at baseline. Patient does report some burning while passing urine. Patient denies any new acute event overnight and reports feeling better overall. Physical Exam Physical Exam: GENERAL: Comfortable, obese, no respiratory distress SKIN: Pallor color, warm HEENT: Alopecia, pale palpebral conjunctivae, no ptosis, moist buccal mucosa, on RA NECK : Supple, short neck, no tenderness CHEST : b/l crackles, no tenderness HEART : RRR, no obvious murmurs ABDOMEN: Some distention, nontender EXTREMITIES : LE swelling (left greater than the right), no LE tenderness, no other conspicuous deformities noted NEUROLOGIC : Coherent, no facial asymmetry, episodic right hand involuntary movement Results & Data Results & Data Vital Signs (Past 12 Hours) Vital Signs Temp Pulse Pulse Resp BP BP Pulse Ox 01/11/24 13:53 64 01/11/24 13:03 64 18 97 01/11/24 11:18 01/11/24 11:17 53 L 01/11/24 11:08 36.3 C L 78 18 133/65 97 01/11/24 07:31 36.4 C L 68 19 176/74 H 96 01/11/24 07:05 76 93 01/11/24 04:53 36.5 C 60 18 124/62 95 01/11/24 04:23 36.6 C 83 20 114/62 98 01/11/24 03:23 36.6 C 63 18 116/51 L 98 O2 Del Method O2 Flow Rate 01/11/24 13:53 01/11/24 13:03 Room Air 01/11/24 11:18 Room Air 01/11/24 11:17 01/11/24 11:08 Room Air 01/11/24 07:31 Room Air 01/11/24 07:05 Room Air 01/11/24 04:53 2 01/11/24 04:23 2 01/11/24 03:23
[2024-01-11] MEDS: BENZONATATE 100 MG CAPSULE PO PRN (15:27)
[2024-01-11] MEDS: CALCIUM CARBONATE 500 MG CHEWABLE TAB PO PRN (21:27)
[2024-01-11] MEDS: ATORVASTATIN 40 MG TAB PO SCH (21:29)
[2024-01-12 06:43] LABS: Hemoglobin 7.9 g/dl (14.0-18.0); Mean Corpuscular Hemoglobin 35.6 pg (25.0-34.0); Mean Corpuscular Hgb Conc 32.9 g/dL (32.0-36.0); Mean Corpuscular Volume 108.1 fL (80.0-100.0); Mean Platelet Volume 9.1 fL (9.4-12.4); Platelet Count 305 K/uL (130-400); RDW Coefficient of Variation 17.4 % (11.5-14.5); RDW Standard Deviation 69.3 fL (36.4-46.3); Red Blood Count 2.22 M/uL (4.70-6.10); White Blood Count 15.77 K/ul (4.8-10.8)
[2024-01-12 06:54] LABS: BUN Creatinine Ratio 19.5 (10-20); Calcium 8.8 mg/dl (8.6-10.3); Creatinine Clr Calc Pharmacy 29.1 ml/min; Magnesium 2.2 mg/dl (1.7-2.4); Phosphorus 3.7 mg/dl (2.5-4.9); Potassium 4.6 mmol/L (3.5-5.1)
--- NOTE | 2024-01-12 07:31 | Electrocardiogram Report ---
Test Reason : Blood Pressure : */* mmHG Vent. Rate : 86 BPM Atrial Rate : 86 BPM P-R Int : 132 ms QRS Dur : 138 ms QT Int : 398 ms P-R-T Axes : 12 -44 11 degrees QTcB Int : 476 ms Poor data quality, interpretation may be adversely affected Normal sinus rhythm Left axis deviation Right bundle branch block Inferior infarct , age undetermined Abnormal ECG No previous ECGs available Confirmed by Jose Armando Cruz ([id number]) on 01/12/2024 7:30:53 AM Referred By: REFERRED SELF Confirmed By: Jose Armando Cruz
[2024-01-12] MEDS: ADVANCED PROBIOTIC 625 MG CAPSULE PO SCH (08:30)
[2024-01-12] MEDS: HYDROcodone/HOMATROPINE SYRUP 5MG/1.5MG 5ML UDP PO PRN (09:43)
[2024-01-12] MEDS: BENZONATATE 100 MG CAPSULE PO SCH (09:43)
[2024-01-12] MEDS: guaiFENesin 600 MG TABCR PO SCH (09:44)
[2024-01-12] MEDS: FLUTICASONE PROPIONATE NA SPR 16 GM BTL PRN (10:29)
[2024-01-12] MEDS ORDERED: HEPARIN 100 UNIT/ML 5ML FLUSH FLUSH PRN (12:32)
--- NOTE | 2024-01-12 13:08 | Electrocardiogram Report ---
Test Reason : Blood Pressure : */* mmHG Vent. Rate : 87 BPM Atrial Rate : 87 BPM P-R Int : 148 ms QRS Dur : 146 ms QT Int : 412 ms P-R-T Axes : 41 -60 65 degrees QTcB Int : 495 ms Normal sinus rhythm Indeterminate axis Right bundle branch block Inferior infarct (cited on or before 10-Jan-2024) Abnormal ECG When compared with ECG of 10-Jan-2024 20:12, Nonspecific T wave abnormality has replaced inverted T waves in Inferior leads Nonspecific T wave abnormality no longer evident in Lateral leads Confirmed by Maxmiino Beth ([id number]) on 01/12/2024 1:08:31 PM Referred By: REFERRED SELF Confirmed By: Maximino Beth
--- NOTE | 2024-01-12 14:46 | Hospitalist Progress Note ---
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 Patient does report associated symptoms of poor appetite and getting weaker. He is being managed for the following: Likely community-acquired pneumonia Sepsis secondary to above: admitting WBC and respiratory rate elevated. Lactate WNL. 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 Admitting imagings: CXR: Bilateral airspace opacities suggestive of pneumonia. Concern for moderate left pleural effusion. CT chest: Bilateral airspace opacities throughout both lungs suggestive of infection. There is dilatation of pulmonary arteries concerning for pulmonary artery hypertension. No significant pleural effusion noted. Filling defects of the bronchi of the lower lobes may represent mucous plugs and/or aspiration. Follow-up admitting blood and sputum culture. Continue with doxycycline 01/10 and Zosyn 01/10. C/w probiotics. Aspiration precautions. Ro aspiration. Speech evaluation Sunday if patient still here or OP speech eval. Solu-Medrol 1 dose at presentation, followed by prednisone course, [facility] RTC for ILD exacerbation. Patient reports improving improving appetite/nausea/reports feeling better. Pt today has increased cough likely 2/2 viral urti, c/w tessalon perle/mucinex/hycodan/flonase. Pulmonology consult if with no improvement. Hold methotrexate during acute illness. Complicated UTI: Patient with burning while passing urine REAL ESTATE REPRESENTATIVE. Patient on antibiotic as above. Follow admitting urine culture. Demand ischemia: Troponin flat trended around 30. Troponin elevation likely secondary to acute illness. Continue with telemetry monitoring. Patient with no chest pain. 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 Distal reconstitution through collaterals with monophasic flow within the left calf vessels. Evidence of stenosis within the proximal left SFA present. Extensive atherosclerotic plaque within the left lower extremity. Follow-up with vascular surgery upon discharge. Other chronic medical conditions: Continue with/resume home meds as and when able. 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 5.9 this admission as well. clonus as per records, patient noted to have episodic involuntary movements of the right hand during encounter DVT prophylaxis. Heparin subcu Full code Dispo: PT/OT. CM to assist w/ dc plan. likely in next 2-3 days. Patient expressed dissatisfaction with current [facility] PCP and oncologist. He has decided to follow-up [facility]. [facility]. Expressed interest in setting up PCP services with [facility] following discharge. Text document was generated using [employer] voice recognition software. It may contain grammatical or spelling errors. Kindly contact undersigned for clarification of any documentation item in question. Admission and Anticipated Discharge Date Admission Date: January 10, 2024 Subjective Patient was seen and examined at bedside. Patient was lying in bed, on room air, NAD, resting comfortably. Patient reports no fever . Patient reports eating okay and moving bowels okay. Patient has increased cough today likely secondary to URTI, is making yellow mucus. Will add medications for symptomatic management of cough. Otherwise patient has remained afebrile, WBC slightly elevated likely secondary to use of his steroid. Physical Exam Physical Exam: GENERAL: Comfortable, obese, no respiratory distress SKIN: Pallor color, warm HEENT: Alopecia, pale palpebral conjunctivae, no ptosis, moist buccal mucosa, on RA NECK : Supple, short neck, no tenderness CHEST : b/l crackles, no tenderness HEART : RRR, no obvious murmurs ABDOMEN: Some distention, nontender EXTREMITIES : LE swelling (left greater than the right), no LE tenderness, no other conspicuous deformities noted NEUROLOGIC : Coherent, no facial asymmetry, episodic right hand involuntary movement Results & Data Results & Data Vital Signs (Past 12 Hours) Vital Signs Temp Pulse Pulse Resp BP Pulse Ox O2 Del Method 01/12/24 14:40 68 01/12/24 13:13 65 18 98 Nasal Cannula 01/12/24 12:35 36.7 C 75 20 164/72 H 96 Nasal Cannula 01/12/24 11:21 Room Air, Nasal Cannula, CPAP 01/12/24 08:06 36.4 C L 72 18 152/67 H 100 Room Air 01/12/24 07:45 70 18 94 Room Air 01/12/24 07:23 67 01/12/24 03:52 36.4 C L 64 16 133/60 97 Room Air 01/12/24 03:35 52 L 18 98 O2 Flow Rate 01/12/24 14:40 01/12/24 13:13 01/12/24 12:35 2 01/12/24 11:21 2 01/12/24 08:06 01/12/24 07:45 01/12/24 07:23 01/12/24 03:52 01/12/24 03:35 2
[2024-01-13 07:48] LABS: Hematocrit (blood only) 23.6 % (42.0-52.0); Hemoglobin 7.8 g/dl (14.0-18.0); Mean Corpuscular Hemoglobin 36.1 pg (25.0-34.0); Mean Corpuscular Hgb Conc 33.1 g/dL (32.0-36.0); Mean Corpuscular Volume 109.3 fL (80.0-100.0); Mean Platelet Volume 9.2 fL (9.4-12.4); Platelet Count 321 K/uL (130-400); RDW Coefficient of Variation 16.8 % (11.5-14.5); RDW Standard Deviation 66.4 fL (36.4-46.3); Red Blood Count 2.16 M/uL (4.70-6.10); White Blood Count 11.57 K/ul (4.8-10.8)
[2024-01-13 07:56] LABS: BUN Creatinine Ratio 21.7 (10-20); Creatinine Clr Calc Pharmacy 28.5 ml/min; Magnesium 2.2 mg/dl (1.7-2.4); Phosphorus 3.1 mg/dl (2.5-4.9); Potassium 4.3 mmol/L (3.5-5.1)
[2024-01-13] MEDS: FLUTICASONE PROPIONATE NA SPR 16 GM BTL SCH (08:01)
--- NOTE | 2024-01-13 15:05 | Hospitalist Progress Note ---
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 Patient does report associated symptoms of poor appetite and getting weaker. He is being managed for the following: Likely community-acquired pneumonia Sepsis secondary to above: admitting WBC and respiratory rate elevated. Lactate WNL. 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 Admitting imagings: CXR: Bilateral airspace opacities suggestive of pneumonia. Concern for moderate left pleural effusion. CT chest: Bilateral airspace opacities throughout both lungs suggestive of infection. There is dilatation of pulmonary arteries concerning for pulmonary artery hypertension. No significant pleural effusion noted. Filling defects of the bronchi of the lower lobes may represent mucous plugs and/or aspiration. Follow-up admitting blood and sputum culture. No growth so far. Continue with doxycycline 01/10 and Zosyn 01/10. C/w probiotics. Aspiration precautions. Ro aspiration. Speech evaluation Sunday if patient still here or OP speech eval. Solu-Medrol 1 dose at presentation, followed by prednisone course, [facility] RTC for ILD exacerbation. Pt complains heartburn, add pepcid bid for duration of steroid. Patient reports improving improving appetite/nausea/reports feeling better. Pt today has improved cough , c/w tessalon perle/mucinex/hycodan/flonase. Pulmonology consult if with no improvement. Hold methotrexate during acute illness. Complicated UTI: Patient with burning while passing urine AUTOMOTIVE PARTS COUNTERPERSON. Patient on antibiotic as above. Admitting urine culture - no growth. Demand ischemia: Troponin flat trended around 30. Troponin elevation likely secondary to acute illness. Continue with telemetry monitoring. Patient with no chest pain. 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 Distal reconstitution through collaterals wit h monophasic flow within the left calf vessels. Evidence of stenosis within the proximal left SFA present. Extensive atherosclerotic plaque within the left lower extremity. Follow-up with vascular surgery upon discharge. Other chronic medical conditions: Continue with/resume home meds as and when able. 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 5.9 this admission as well. clonus as per records, patient noted to have episodic involuntary movements of the right hand during encounter DVT prophylaxis. Heparin subcu Full code Dispo: PT/OT. CM to assist w/ dc plan. likely in next 2-3 days. Patient expressed dissatisfaction with current [facility] PCP and oncologist. He has decided to follow-up [facility]. Pt is aware he is under [facility] Hospitalist and is ok w/ it for this admission. Expressed interest in setting up PCP services with [facility] following discharge. Text document was generated using [email or web address] voice recognition software. It may contain grammatical or spelling errors. Kindly contact undersigned for clarification of any documentation item in question. Admission and Anticipated Discharge Date Admission Date: January 10, 2024 Subjective Patient was seen and examined at bedside. Patient was lying in bed, on room air, NAD, resting comfortably. Patient reports no fever . Patient reports eating okay and moving bowels okay. Patient has improved cough today . Physical Exam Physical Exam: GENERAL: Comfortable, obese, no respiratory distress SKIN: Pallor color, warm HEENT: Alopecia, pale palpebral conjunctivae, no ptosis, moist buccal mucosa, on RA NECK : Supple, short neck, no tenderness CHEST : b/l crackles - improving. , no tenderness HEART : RRR, no obvious murmurs ABDOMEN: Some distention, nontender EXTREMITIES : LE swelling (left greater than the right), no LE tenderness, no other conspicuous deformities noted NEUROLOGIC : Coherent, no facial asymmetry, episodic right hand involuntary movement Results & Data Results & Data Vital Signs (Past 12 Hours) Vital Signs Temp Pulse Pulse Resp BP Pulse Ox O2 Del Method 01/13/24 14:35 86 01/13/24 12:28 57 L 18 98 Nasal Cannula 01/13/24 11:20 36.3 C L 63 19 150/65 H 97 Nasal Cannula 01/13/24 11:03 Room Air, Nasal Cannula, CPAP 01/13/24 09:37 58 L 01/13/24 08:00 36.5 C 60 19 164/61 H 96 Room Air 01/13/24 07:22 60 18 96 Room Air 01/13/24 04:05 37 C 57 L 18 161/75 H 100 Nasal Cannula O2 Flow Rate 01/13/24 14:35 01/13/24 12:28 2 01/13/24 11:20 2 01/13/24 11:03 3 01/13/24 09:37 01/13/24 08:00 01/13/24 07:22 01/13/24 04:05 2
[2024-01-13] MEDS: POTASSIUM CHLORIDE 10 MEQ TABCR PO SCH (16:29)
[2024-01-13] MEDS: TORSEMIDE 20 MG TAB PO SCH (16:30)
[2024-01-13] MEDS: FAMOTIDINE 20 MG TAB PO SCH (16:30)
[2024-01-14 10:30] LABS: Hematocrit (blood only) 27.1 % (42.0-52.0); Hemoglobin 8.7 g/dl (14.0-18.0); Mean Corpuscular Hgb Conc 32.1 g/dL (32.0-36.0); Mean Platelet Volume 9.3 fL (9.4-12.4); Platelet Count 373 K/uL (130-400); RDW Coefficient of Variation 17.3 % (11.5-14.5); RDW Standard Deviation 72.5 fL (36.4-46.3); Red Blood Count 2.42 M/uL (4.70-6.10); White Blood Count 12.79 K/ul (4.8-10.8)
[2024-01-14 10:45] LABS: BUN Creatinine Ratio 18.3 (10-20); Calcium 9.3 mg/dl (8.6-10.3); Creatinine Clr Calc Pharmacy 25.6 ml/min; Potassium 3.8 mmol/L (3.5-5.1)
--- NOTE | 2024-01-14 11:02 | Fluoroscopy Report ---
FL video swallow CLINICAL HISTORY: 88 years-old Male with assess for aspiration. This patient with possible aspiratio n TECHNIQUE: Video fluoroscopic evaluation of swallowing was performed in the AP and lateral projection s by the speech pathology staff. The patient is fed varying consistencies of barium. FLUOROSCOPY TIME: 1.47 minutes. 3168 images were obtained. 20.3 mGy COMPARISON STUDY: Chest CT 01/10/2024 FINDINGS: There is normal hyoid excursion and epiglottic deflection. Small amount of laryngeal penetr ation with thin liquid and nectar consistencies. No aspiration identified throughout the study. 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 No hiatal hernia identified on thi s exam. IMPRESSION: 1. Laryngeal penetration without aspiration identified. 2. Please see the speech pathologist report for detailed findings and recommendations. ACT 112: Negative or not required by law. Electronically signed by: Handy Landeros M.D. 01/14/2024 11:00 AM
[2024-01-14 11:58] VITALS: BP 137/69; RESP 18; TEMP 97.7
--- NOTE | 2024-01-14 13:22 | Discharge Summary ---
Date of Service January 14, 2024 Admission HPI Per Admitting Provider History obtained from patient and records. 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 4 months history of junky cough symptoms with congestion and SOB. Denies aspiration. No weight gain as per patient. No chest pain. Outpatient chest x-ray last September 2023 showed 1. Distortion/scarring at the left lateral costophrenic sulcus is unchanged on the frontal view however the posterior costophrenic sulcus is newly blunted, potentially reflecting combination of a new, small pleural effusion and underlying pleuroparenchymal scarring postoperatively. 2. 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 Advair initiated for airway inflammation and outpatient course of Augmentin and prednisone prescribed by [facility] floatlight loading supervisor for bronchitis/sinusitis. Minimal response to treatment as per patient. Worsening symptoms noted the past week. Junky cough productive of yellow green sputum. Not sure about sick contacts. Left leg more swollen than usual. Denies abdominal pain, denies black/bloody stools/hematuria. Chronic back pain as per patient. Ceftriaxone and 1 unit administered at the ER. Medical History as above Surgical History : Back surgery, carpal tunnel surgery, dental surgery, CABG, vascular procedures, tonsillectomy, cataract surgery Family History : Heart disease, breast cancer, stomach cancer Personal/Social history : Non-smoker, occasional EtOH intake, retired businessman Admission Exam Per Admitting Provider GENERAL: Comfortable, obese, no respiratory distress SKIN: Pallor color, warm HEENT: Alopecia, pale palpebral conjunctivae, no ptosis, dry buccal mucosa, nasal cannula in place NECK : Supple, short neck, no tenderness CHEST : Diffuse expiratory wheezes,, no tenderness HEART : RRR, no obvious murmurs ABDOMEN: Some distention, nontender EXTREMITIES : LE swelling (left greater than the right), no LE tenderness, no other conspicuous deformities noted NEUROLOGIC : Coherent, no facial asymmetry, episodic right hand involuntary movement Principal Diagnosis Likely community-acquired pneumonia Sepsis secondary to pneumonia Likely interstitial lung disease exacerbation Complicated UTI Leg swelling, peripheral vascular disease of LLE. Discharge Exam GENERAL: Comfortable, obese, no respiratory distress SKIN: Pallor color, warm HEENT: Alopecia, pale palpebral conjunctivae, no ptosis, moist buccal mucosa, on RA NECK : Supple, short neck, no tenderness CHEST : b/l crackles - improving. , no tenderness HEART : RRR, no obvious murmurs ABDOMEN: Some distention, nontender EXTREMITIES : LE swelling (left greater than the right), no LE tenderness, no other conspicuous deformities noted NEUROLOGIC : Coherent, no facial asymmetry, episodic right hand involuntary movement Discharge Data Allergies Allergy/AdvReac Type Severity Reaction Status Date / Time No Known Allergies Allergy Verified 08/04/19 11:07 Consultations 01/10/24 21:16 ED Decision to Admit Stat Ordered Studies 01/10/24 22:18 CT chest diagnostic wo con Stat US venous doppler LE BI Stat 01/11/24 03:21 US arterial duplex LE LT Routine 01/14/24 10:00 FL video swallow Routine Hospital Course (1) Sepsis: 88-year-old male with PMH of chronic diastolic heart failure [EF 55%, TTE 2022], CAD status post CABG, PAF not on anticoagulation due to patient preference, mild MR, PVD, bronchial asthma/ILD, DAISY on CPAP, CKD [baseline creatinine around 2], 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 Patient does report associated symptoms of poor appetite and getting weaker. He was managed for the following: Likely community-acquired pneumonia Sepsis secondary to above: admitting WBC and respiratory rate elevated. Lactate WNL. 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 Admitting imagings: CXR: Bilateral airspace opacities suggestive of pneumonia. Concern for moderate left pleural effusion. CT chest: Bilateral airspace opacities throughout both lungs suggestive of infection. There is dilatation of pulmonary arteries concerning for pulmonary artery hypertension. No significant pleural effusion noted. Filling defects of the bronchi of the lower lobes may represent mucous plugs and/or aspiration. Follow-up admitting blood and sputum culture. No growth so far. Continue with doxycycline 01/10 and Zosyn 01/10. C/w probiotics. To PO atb on dc to complete the course. Aspiration precautions. Ruled out aspiration w/ VFSS. Appreciate Speech recs. Tapering dose of steroid for concern of ILD exacerbation. Pepcid while on steroid. Patient reports improving improving appetite/nausea/reports feeling better. Pt has improved cough , c/w tessalon perle/mucinex/hycodan/flonase. Pulmonology f/u as OP for f/u on ILD. Hold methotrexate during acute illness. Complicated UTI: Patient with burning while passing urine PERITONEAL DIALYSIS REGISTERED NURSE. Patient on antibiotic as above. Admitting urine culture - no growth. Demand ischemia: Troponin flat trended around 30. Troponin elevation likely secondary to acute illness. Continue with telemetry monitoring. Patient with no chest pain. 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 Distal reconstitution through collaterals with monophasic flow within the left calf vessels. Evidence of stenosis within the proximal left SFA present. Extensive atherosclerotic plaque within the left lower extremity. Follow-up with vascular surgery upon discharge. Other chronic medical conditions: Continue with/resume home meds as and when able. 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 5.9 this admission as well. clonus as per records, patient noted to have episodic involuntary movements of the right hand during encounter DVT prophylaxis. Heparin subcu Full code Dispo: PT/OT. CM to assist w/ dc plan. likely in next 2-3 days. Patient expressed dissatisfaction with current [facility] PCP and oncologist. He has decided to follow-up Dr. Goss of [facility] for oncology. Pt is aware he is under [facility] Hospitalist and is ok w/ it for this admission. Expressed interest in setting up PCP services with [facility] following discharge. Patient is being discharged with following instruction at the point of discharge: Follow-up with your primary care physician within a week time and likely you will need labs CBC/CMP/magnesium/phosphorus. You were treated for pneumonia and possible exacerbation of interstitial lung disease. You will be discharged on antibiotic to complete the course. You will also be discharged on tapering dose of steroid. Continue to take Pepcid for the duration of steroid use. You will be given probiotic as well. Once your acute illness is resolved, you can resume your methotrexate. You will benefit from establishing with outpatient pulmonology for your history of interstitial lung disease, coordinate with your PCP office to set up the referral. Follow-up on final results of your inpatient blood culture during your PCP visit within a week time. As discussed at the bedside, you have peripheral vascular disease of left lower extremity. Establish with vascular surgery upon discharge, coordinate with your PCP office to set up the referral. Take your medications as prescribed. Please make sure that you are able to get your medications today by calling your pharmacy before you leave the hospital so that your treatment continuity is not broken. Text document was generated using [employer] voice recognition software. It may contain grammatical or spelling errors. Kindly contact undersigned for clarification of any documentation item in question. Home Health Attestation I certify that this patient is under my care and that I, or a physicians orthodontic technician assistant working with me, had a face to-face encounter that meets the home health [id number] encounter requirements with this patient. The encounter with the patient was in whole, or in part, for the following medical condition, which is the primary reason for home health care (list medical condition): I certify that, based on my findings, the following services are medically ne cessary home health services: My clinical findings support the need for the above services because: Further, I certify that my clinical findings support that this patient is homebound (i.e. absences from home require considerable and taxing effort and are for medical reasons or buddhist services or infrequently or of short duration when for other reasons) because: Certification for Home Health Services: Based on the above findings, I certify that this patient is confined to the home and needs intermittent alf care, physical therapy and/or speech therapy or continues to need occupational therapy. The patient is under my care, and I have initiated the establishment of the plan of care. This patient will be followed by a physician who will periodically review the plan of care. Total Time Total Time Spent Total Time Spent (In Minutes): 55 Discharge Plan Discharge Items Patient Disposition: Home - Self-Care Reason For Visit: SEPSIS Discharge Diagnosis: Likely community-acquired pneumonia Sepsis secondary to pneumonia Likely interstitial lung disease exacerbation Complicated UTI Leg swelling, peripheral vascular disease of LLE. Activity: Resume your previous activity Non-emergency contact: Primary Care Provider Call non-emergency contact if: you have any medication questions and your symptoms worsen Follow-up/Referrals: Willi Staley MD [Primary Care Provider] - Diet: Heart Healthy Addtl Attending Provider Instructions: Follow-up with your primary care physician within a week time and likely you will need labs CBC/CMP/magnesium/phosphorus. You were treated for pneumonia and possible exacerbation of interstitial lung disease. You will be discharged on antibiotic to complete the course. You will also be discharged on tapering dose of steroid. Continue to take Pepcid for the duration of steroid use. You will be given probiotic as well. Once your acute illness is resolved, you can resume your methotrexate. You will benefit from establishing with outpatient pulmonology for your history of interstitial lung disease, coordinate with your PCP office to set up the referral. Follow-up on final results of your inpatient blood culture during your PCP visit within a week time. As discussed at the bedside, you have peripheral vascular disease of left lower extremity. Establish with vascular surgery upon discharge, coordinate with your PCP office to set up the referral. Take your medications as prescribed. Please make sure that you are able to get your medications today by calling your pharmacy before you leave the hospital so that your treatment continuity is not broken. Pending Studies at Discharge: Yes Stand-Alone Forms: [employer], Smoking Cessation Medications and DC Order Prescriptions: New doxycycline hyclate 100 mg Capsule 100 mg PO BID 5 Days Qty: 10 0RF famotidine 20 mg Tablet 20 mg PO BID 7 Days Qty: 14 0RF Advanced Probiotic 625 mg (10 billion cell) Capsule 1 cap PO DAILY 14 Days Qty: 14 0RF prednisone 20 mg Tablet 40 mg PO UD Qty: 11 0RF Rx Instructions: 2 tabs daily x 4 days, then 1 tab daily x 3 days, then stop. guaifenesin [Mucinex] 600 mg Tablet Extended Release 12hr 1,200 mg PO Q12 5 Days Qty: 20 0RF hydrocodone-homatropine [Hydromet] 5-1.5 mg/5 mL Syrup 5 ml PO Q6H PRN (Reason: cough) 7 Days Qty: 473 0RF cefdinir 300 mg capsule 300 mg PO BID 6 Days Qty: 12 0RF Continued PreserVision AREDS [id number] capsule 1 cap PO BID acetaminophen [Tylenol Extra Strength] 500 mg tablet 500 mg PO BID cetirizine 5 mg tablet,chewable 5 mg PO DAILY PRN (Reason: Allergy Symptoms) aspirin 81 mg tablet,delayed release (DR/EC) 81 mg PO DAILY finasteride 5 mg tablet 5 mg PO DAILY atorvastatin 40 mg tablet 40 mg PO QPM fluticasone propionate [Flonase Allergy Relief] 50 mcg/actuation spray,suspension 1 sprays INTNAS DAILY PRN (Reason: Allergy Symptoms) potassium chloride [Klor-Con 10] 10 mEq tablet extended release 10 meq PO DAILY coenzyme Q10 [Co Q-10] 100 mg capsule 100 mg PO DAILY cranberry 1,000 mg capsule 1,000 mg PO DAILY torsemide 20 mg tablet 20 mg PO QAM albuterol sulfate 2.5 mg /3 mL (0.083 %) solution for nebulization continuous nebulization PRN (Reason: Shortness Of Breath Or Wheezing) citalopram 10 mg tablet 10 mg PO QAM alprazolam 0.5 mg tablet 0.5 mg PO BID PRN (Reason: Anxiety) benzonatate 100 mg capsule 100 mg PO TID PRN (Reason: Cough) allopurinol 300 mg tablet 300 mg PO QAM azelastine 137 mcg (0.1 %) spray,non-aerosol 2 spray INTRANASAL QAM olmesartan 20 mg tablet 20 mg PO QAM budesonide-formoterol [Symbicort] 160-4.5 mcg/actuation HFA aerosol inhaler 2 puff INHALATION DAILY Held methotrexate sodium 2.5 mg tablet 2.5 mg PO WK Hold Instructions: Resume on 01/21/24. Discharge Orders: Discharge Order (Routine); Ordered 01/14/24 Ordered By: Saud Rivera/Other Patient Handouts: A1C Admission Data Admit Date/Time: 01/10/24 21:34 Attending Provider: Saud Whitfield Admit Provider: Bryce Sharpe Primary Care Provider: Willi Staley I. Other Providers: Bryce Sharpe
[2024-01-14 13:58] VITALS: O2SAT 96
[2024-01-14 14:25] VITALS: PULSE 72
== END 2024-01-14 15:20 | disposition home or self-care (01) | DRG 871 ==
LOC: ED 19:40 → 2W 21:34

== ENCOUNTER 2024-10-28 15:16 | Inpatient (IN) ==
--- NOTE | 2024-10-28 15:27 | Emergency Department Note ---
Impression & Plan Orthostatic hypotension, Syncope, Anemia, Acidosis, lactic, Elevated troponin I level, Pleural effusion ED Provider Note NAME: DEEDEE FALCON AGE: 89 SEX: M : 1935 ARRIVES VIA: Ambulance INFORMANT: Patient, EMS ED PROVIDER(S): Maximino Kessler DO CHIEF COMPLAINT: Shortness of breath HPI: The patient is an 89-year-old male who presented to the emergency department by ambulance. He has a history of leukemia. The patient has a history of paroxysmal atrial fibrillation. He states has been feeling very ill recently. Last week he had a syncopal episode. He states he did strike his head but he denies having any neck pain or headache. The patient denies having any nausea or vomiting. The patient states that he was feeling worse today. He was noted to have a low blood pressure. He called 9 1 and arrived via ambulance. The patient was noted to have no hypoxia. ROS: See above HPI for pertinent positives & negatives. A total of 10 systems reviewed and were otherwise negative. PAST MEDICAL HISTORY: See Below PAST SURGICAL HISTORY: See Below FAMILY HISTORY: See Below SOCIAL HISTORY: See Below HOME MEDICATIONS: See Below ALLERGIES: See Below VITALS: See Below PHYSICAL EXAMINATION: GENERAL: The patient is awake and alert. He is somewhat anxious appearing. EYES: The conjunctivae are clear. The pupils are round and reactive. EARS, NOSE, MOUTH AND THROAT: The nose is without any evidence of any deformity. NECK: The neck is nontender and supple. RESPIRATORY: Pursed lip breathing and conversational dyspnea was noted. Lung sounds were overall clear. CARDIOVASCULAR: Regular rate and rhythm noted there no murmurs rubs or gallops normal S1 normal S2. GASTROINTESTINAL: The abdomen is soft. Abdomen is nontender. BACK: No midline tenderness or or step-off noted range of motion in flexion extension as well as rotation no signs of muscle spasm noted MUSCULOSKELETAL/EXTREMITIES: There is no evidence of gross deformity full range of motion is noted in the hips and shoulders. SKIN: There is no obvious evidence of any rash. There are no petechiae, pallor or cyanosis noted. NEUROLOGIC: Patient is awake alert and oriented x3. Strength is symmetric. Speech was clear. There is no facial droop noted. MEDICAL DECISION MAKING: Patient is a 89-year-old male who presented to the emergency department for an evaluation. The patient had a syncopal episode. The patient has not been feeling well. He feels very lightheaded and dizzy when he stands up. He does have significant past medical history including paroxysmal atrial fibrillation. He has a history of heart failure. Patient also has history of renal insufficiency. The patient was treated with a small fluid bolus in the emergency department. Vital signs did reveal orthostatic hypotension. I discussed the patient's laboratory and radiographic studies with him. Given his comorbidities I did discuss his condition with the on-call [facility] hospitalist. Triage Nursing notes reviewed. Prior medical records reviewed Vital Signs: reviewed and remarkable for orthostatic hypotension. Differential diagnosis: Reactive airway disease, pneumonia, pneumothorax, COPD, CHF, infections, cardiac ischemia, pulmonary embolism, musculoskeletal, gastrointestinal, as well as other pathologies. ER treatment provided: See below Diagnostics interpreted by me: ECG: EKG was obtained in the emergency department. My interpretation is sinus rhythm at 76 bpm. Right bundle branch block pattern was noted. QTc was 461 ms. This was compared to a tracing from January 12, 2024. No changes were noted. Cardiac Monitoring: An order was placed for continuous cardiac monitoring. The monitor shows a rate of 76 bpm with sinus rhythm. Laboratory studies: As stated above and show below. Imaging studies: See below. Radiographic imaging was reviewed by myself Consultation(s): [facility] Lopez [facility] the [facility]. I discussed this case with Audi who is the [facility]. Past Med/Surg History Problem List (Updated 10/28/24 @ 16:57 by Maximino Kessler DO) Pleural effusion (Acute) Elevated troponin I level (Acute) Acidosis, lactic (Acute) Anemia (Acute) Syncope (Acute) Orthostatic hypotension (Acute) Hypoxemia PAF (paroxysmal atrial fibrillation) Chronic diastolic heart failure Back pain Acute kidney injury Proteinuria Vitamin D deficiency Anxiety T-cell large granular lymphocytic leukemia DAISY (obstructive sleep apnea) CAD (coronary artery disease) of artery bypass graft by pass in 2019 CKD (chronic kidney disease) stage 4, GFR 15-29 ml/min Aplastic anemia Acute bronchitis due to Rhinovirus Persistent cough Spinal stenosis, lumbar region with neurogenic claudication (Chronic) High cholesterol HTN (hypertension), benign Medical History Sepsis Pneumonia Bilateral cataracts Afib Surgical History History of back surgery S/P triple vessel bypass Family History Mother Hypertension Sister Breast cancer Social History Smoking Status: Never smoker Hx Alcohol Use: Yes Alcohol type: beer Hx Substance Use: No Preferred Language: Serbian Communication Ability: Effective Visual Impairment: Limited Hearing Ability: Normal Report Checker Required: No Beliefs That Will Affect Care: None marital status: Current Living Situation: Spouse Current Living Situation Comment: lives with at [facility] current occupational status: retired Feels Safe at Home: Yes Assistive Devices: CPAP, Nebulizer, Oxygen - at Night and Walker Allergies Allergies Allergy/AdvReac Type Severity Reaction Status Date / Time No Known Allergies Allergy Verified 10/23/24 14:37 Home Meds Home Medications Medication Instructions Recorded Confirmed acetaminophen 500 mg tablet 500 mg PO BID 07/23/19 10/28/24 (Tylenol Extra Strength) aspirin 81 mg tablet,delayed 81 mg PO DAILY 07/23/19 10/28/24 release atorvastatin 40 mg tablet 40 mg PO QPM 07/23/19 10/28/24 coenzyme Q10 100 mg capsule (Co 100 mg PO DAILY 07/23/19 10/28/24 Q-10) finasteride 5 mg tablet 5 mg PO DAILY 07/23/19 10/28/24 vitamins A,C,B-[id number] 4,296 1 cap PO BID 07/23/19 10/28/24 mcg-226 mg-90 mg capsule (PreserVision AREDS) alprazolam 0.5 mg tablet 0.5 mg PO BID PRN Anxiety 01/10/24 10/28/24 citalopram 10 mg tablet 10 mg PO QAM 01/10/24 10/28/24 guaifenesin 600 mg tablet, 600 mg PO BID 06/02/24 10/28/24 extended release 12 hr tamsulosin 0.4 mg capsule 0.4 mg PO DAILY 06/02/24 10/28/24 allopurinol 100 mg tablet 100 mg PO QAM 10/23/24 10/28/24 benzonatate 100 mg capsule 100 mg PO TID PRN Cough 10/23/24 10/28/24 dexamethasone 6 mg tablet 6 mg PO QAM 10/23/24 10/28/24 lutein 10 mg tablet 10 mg PO QPM 10/23/24 10/28/24 torsemide 20 mg tablet 40 mg PO QAM 10/23/24 10/28/24 magnesium oxide 500 mg PO QAM 10/28/24 10/28/24 methotrexate sodium 2.5 mg tablet 12.5 mg PO WK 10/28/24 10/28/24 Previous Rx's Medication Instructions Recorded folic acid 400 mcg tablet 0.4 mg PO DAILY #30 tabs 07/28/24 mecobalamin (vitamin B12) 1,000 1,000 mcg PO DAILY #30 tabs 07/28/24 mcg chewable tablet (B12 Active) tramadol 50 mg tablet 50 mg PO BID PRN pain #60 tabs 07/28/24 olmesartan 5 mg tablet 5 mg PO DAILY #90 tabs 10/23/24 Results & Data (ED) Vital Signs Vital Signs - 24 hr 10/28/24 15:25 10/28/24 15:46 10/28/24 16:34 Temperature 37 C Temperature Source Oral Pulse Rate - Lying 72 Pulse Rate - Sitting 70 Pulse Rate - Standing 79 Pulse Rate 73 76 Respiratory Rate 25 H Respiratory Depth Normal Respiratory Pattern Regular Blood Pressure - Lying 110/64 Blood Pressure - Sitting 126/63 Blood Pressure- Standing 97/45 L Blood Pressure 125/62 Blood Pressure Mean 83 Pulse Oximetry 100 Oxygen Delivery Method Room Air Sepsis Recent Fever Within 48 Hours No Sepsis New/Unexplained Change in Mental Status No Sepsis Action Taken by Nursing No Action Required Home Medications Current Medication List: was personally reviewed by me Laboratory Data Attestation: I reviewed the patient's lab results. 10/28/24 15:29 10/28/24 15:29 Lab Results 10/28/24 10/28/24 Range/Units 15:29 15:30 WBC 12.27 H (4.8-10.8) K/ul RBC 2.82 L (4.70-6.10) M/uL Hgb 9.9 L (14.0-18.0) g/dl POC Hgb 10.9 L (14.0-18.0) g/dl Hct 30.5 L (42.0-52.0) % POC Hct 32 L (42-52) % MCV 108.2 H (80.0-100.0) fL MCH 35.1 H (25.0-34.0) pg MCHC 32.5 (32.0-36.0) g/dL RDW Std Deviation 57.0 H (36.4-46.3) fL RDW Coeff of Ant 14.6 H (11.5-14.5) % Plt Count 186 (130-400) K/uL MPV 10.4 (9.4-12.4) fL Immature Gran % (Auto) 0.7 % Neut % (Auto) 87.2 % Lymph % (Auto) 3.7 % Erie % (Auto) 6.2 % Eos % (Auto) 2.0 % Baso % (Auto) 0.2 % Neut # (Auto) 10.72 H (1.40-6.50) K/uL Lymph # (Auto) 0.45 L (1.20-3.40) K/uL Erie # (Auto) 0.76 H (0.11-0.59) K/uL Eos # (Auto) 0.24 (0.00-0.50) K/uL Baso # (Auto) 0.02 (0.00-0.20) K/uL Immature Gran # (Auto) 0.08 (0.01-0.20) K/uL PT 10.7 (9.0-12.0) Seconds INR 1.0 (0.9-1.1) APTT 27 (21-31) Seconds PTT Ratio 1.0 VBG pH 7.44 H (7.36-7.41) VBG pCO2 41 (38-50) mmHg VBG pO2 26 mmHg VBG HCO3 28 mmol/L VBG O2 Saturation < 60.0 % VBG Base Excess 3.3 mEq/L POC Sodium 135 (135-144) mmol/L Sodium 136 (136-145) mmol/L POC Potassium 4.5 (3.3-5.0) mmol/L Potassium 4.3 (3.5-5.1) mmol/L POC Chloride 103 (101-112) mmol/L Chloride 102 (98-107) mmol/L Carbon Dioxide 27 (21-32) mmol/L POC Total CO2 27 (24-31) mmol/L Anion Gap 7 (3-11) POC Anion Gap 11.0 L (16-25) mmol/L POC BUN 79 H (7-18) mg/dl BUN 67 H (6-23) mg/dl Creatinine 2.80 H (0.6-1.4) mg/dl POC Creatinine 3.2 H (0.6-1.3) mg/dl Est Cr Clr Drug Dosing 21.6 ml/min eGFR 21.17 BUN/Creatinine Ratio 23.9 H (10-20) Glucose 127 H (70-99(Fasting)) mg/dl POC Glucose (other) 125 H (70-99) mg/dl Lactate 2.1 H* (0.4-2.0) mmol/L Calcium 8.3 L (8.6-10.3) mg/dl POC Ioniz Calcium Rekha 1.14 (1.12-1.32) mmol/l Magnesium 1.9 (1.7-2.4) mg/dl Total Bilirubin 0.5 (0.2-1.0) mg/dl Direct Bilirubin 0.0 (0-0.2) mg/dl AST 19 (13-39) U/L ALT 45 (7-52) U/L Alkaline Phosphatase 80 (34-104) U/L Troponin I High Sens 31.4 H (0-20) pg/ml Total Protein 5.5 L (6.0-8.3) gm/dl Albumin 3.5 (3.4-5.0) gm/dl Procalcitonin 0.33 (0-0.5) ng/ml Administered Medications Discontinued Medications Sodium Chloride (Nss) 500 mls @ 999 mls/hr IV .Q31M ONE Stop: 10/28/24 16:24 Last Admin: 10/28/24 16:38 Dose: 999 mls/hr Documented By: ANKUR Imaging Data Attestation: I personally reviewed and interpreted this imaging study as follows: My Impression: 1 view chest x-ray was obtained in the emergency department. My interpretation is cardiomegaly with left-sided pleural effusion, final report below. Radiologist's Impression: Chest X-Ray 10/28/24 15:22 SINGLE VIEW CHEST CLINICAL HISTORY: Sepsis FINDINGS: An AP, portable, upright chest radiograph is compared to chest x-ray and chest CT dated 01/10/2024. A right-sided central venous infusion has been removed. The patient is status post midline sternotomy. The heart is enlarged including atherosclerotic calcification of the thoracic aorta. The pulmonary vasculature is not congested. 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 Opacities at the left lung base are unchanged, and corresponds to subpleural/epicardial fat and scarring/fibrosis when compared to the prior chest CT. No airspace consolidation is seen typical for pneumonia. No large pleural effusion or pneumothorax is identified. The skeletal structures are osteopenic. The bony thorax is grossly intact. IMPRESSION: 1. Cardiomegaly and chronic parenchymal changes as above with no acute cardiopulmonary abnormality identified. 2. Opacification at the left lung base is unchanged from 01/10/2024. When correlated with the prior chest CT this likely represents subpleural/epicardial fat and fibrotic change. Clinical correlation will be essential. ACT 112: Negative or not required by law. Electronically signed by: Leoncio Floyd M.D. 10/28/2024 3:[address] 10/28/24 15:23 CT cervical spine without IV contrast History: Trauma Comparison: None Technique: Using multidetector thin collimation helical acquisition technique, axial, coronal and sagittal CT images through the cervical spine were obtained without intravenous contrast. Dose reduction techniques were achieved by using automatic exposure control and/or adjustment of mA and/or kV according to patient size and/or use of iterative reconstruction technique. Findings: The cervical vertebrae are normally aligned. Normal cervical lordosis. No acute fracture or subluxation. No prevertebral edema. Severe degenerative disc changes at C6-7, associated with an anterior bridging osteophyte. Moderate hypertrophic multilevel degenerative facet changes noted on the left. No abnormality of the paraspinous soft tissues. Ovoid nodular lesion. About the posterior right thyroid gland, is a 3.4 cm low attenuating Impression: No acute fracture or traumatic subluxation. An ovoid 3.4 cm nodular lesion about the posterior right thyroid gland, may represent a thyroid or parathyroid nodule. Recommend follow-up thyroid ultrasound. Electronically signed by Geoff Delacruz 10-28-2024 4:[address] 10/28/24 15:23 CT head without contrast History: Trauma Comparison: None Technique: Using multidetector thin collimation helical acquisition technique, axial, coronal and sagittal CT images from the skull base to the vertex were obtained without intravenous contrast. Dose reduction techniques were achieved by using automatic exposure control and/or adjustment of mA and/or kV according to patient size and/or use of iterative reconstruction technique. Findings: No intracranial hemorrhage, mass-effect, or midline shift. The ventricles are proportionate to the cerebral sulci. The lopez to white matter differentiation of the cerebral hemispheres is preserved. The basal cisterns are patent. There is moderate cerebral atrophy. Moderate, patchy low-attenuation changes in the white matter, most suggestive of sequelae of chronic small vessel ischemic disease. The visualized paranasal sinuses are clear. Mastoid air cells are clear. Impression: No acute intracranial pathology. Electronically signed by Geoff Delacruz 10-28-2024 4:14 PM Discharge Plan Visit Data Chief Complaint: Illness ED Provider: Maximino Kessler Discharge Problem: Orthostatic hypotension, Syncope, Anemia, Acidosis, lactic, Elevated troponin I level, Pleural effusion Patient Disposition: Being Evaluated by Hospitalist Condition: Fair Forms Stand Alone Forms: My [facility] Prescriptions Prescriptions: No Action PreserVision AREDS [id number] [id number] capsule 1 cap PO BID acetaminophen [Tylenol Extra Strength] 500 mg tablet 500 mg PO BID aspirin 81 mg tablet,delayed release (DR/EC) 81 mg PO DAILY finasteride 5 mg tablet 5 mg PO DAILY atorvastatin 40 mg tablet 40 mg PO QPM coenzyme Q10 [Co Q-10] 100 mg capsule 100 mg PO DAILY allopurinol 100 mg tablet 100 mg PO QAM benzonatate 100 mg capsule 100 mg PO TID PRN (Reason: Cough) dexamethasone 6 mg tablet 6 mg PO QAM lutein 10 mg tablet 10 mg PO QPM Rx Instructions: give with meal/snack torsemide 20 mg tablet 40 mg PO QAM Hold Instructions: Home Medication placed on hold at Doctor's office olmesartan 5 mg tablet 5 mg PO DAILY Qty: 90 2RF Hold Instructions: Home Medication placed on hold at Doctor's office tamsulosin 0.4 mg capsule 0.4 mg PO DAILY guaifenesin 600 mg tablet extended release 12hr 600 mg PO BID tramadol 50 mg tablet 50 mg PO BID PRN (Reason: pain) Qty: 60 0RF mecobalamin (vitamin B12) [B12 Active] 1,000 mcg tablet,chewable 1,000 mcg PO DAILY Qty: 30 0RF folic acid 400 mcg tablet 0.4 mg PO DAILY Qty: 30 2RF methotrexate sodium 2.5 mg tablet 12.5 mg PO WK Rx Instructions: 5 TABLET DOSE magnesium oxide 500 mg magnesium Tablet 500 mg PO QAM citalopram 10 mg tablet 10 mg PO QAM alprazolam 0.5 mg tablet 0.5 mg PO BID PRN (Reason: Anxiety) Referrals Referrals: Kylie Gibbs MD [Primary Care Provider] -
[2024-10-28 15:40] LABS: Base Excess VBG 3.3 mEq/L; HCO3 VBG 28 mmol/L; Oxygen Saturation VBG < 60.0 %; PCO2 VBG 41 mmHg (38-50); PO2 VBG 26 mmHg; pH VBG 7.44 (7.36-7.41)
[2024-10-28 15:45] LABS: Hematocrit (blood only) 30.5 % (42.0-52.0); Hemoglobin 9.9 g/dl (14.0-18.0); Immature Granulocytes # (auto) 0.08 K/uL (0.01-0.20); Immature Granulocytes % (auto) 0.7 %; Mean Corpuscular Hemoglobin 35.1 pg (25.0-34.0); Mean Corpuscular Volume 108.2 fL (80.0-100.0); Platelet Count 186 K/uL (130-400); RDW Standard Deviation 57.0 fL (36.4-46.3); Red Blood Count 2.82 M/uL (4.70-6.10); White Blood Count 12.27 K/ul (4.8-10.8)
--- NOTE | 2024-10-28 15:49 | XRay Report ---
SINGLE VIEW CHEST CLINICAL HISTORY: Sepsis FINDINGS: An AP, portable, upright chest radiograph is compared to chest x-ray and chest CT dated . A right-sided central venous infusion has been removed. The patient is status post midline s ternotomy. The heart is enlarged including atherosclerotic calcification of the thoracic aorta. The p ulmonary vasculature is not congested. Chronic interstitial/fibrotic lung disease is similar to previ ous. Opacities at the left lung base are unchanged, and corresponds to subpleural/epicardial fat and scarring/fibrosis when compared to the prior chest CT. No airspace consolidation is seen typical for pneumonia. No large pleural effusion or pneumothorax is identified. The skeletal structures are osteo penic. The bony thorax is grossly intact. IMPRESSION: 1. Cardiomegaly and chronic parenchymal changes as above with no acute cardiopulmonary abnormality id entified. 2. Opacification at the left lung base is unchanged from 01/10/2024. When correlated with the prior c hest CT this likely represents subpleural/epicardial fat and fibrotic change. Clinical correlation wi ll be essential. ACT 112: Negative or not required by law. Electronically signed by: Leoncio Floyd M.D. 10/28/2024 3:48 PM
[2024-10-28 16:02] LABS: Alanine Aminotransferase 45.0 U/L (7-52); Alkaline Phosphatase 80.0 U/L (34-104); Anion Gap 7.0 (3-11); Bilirubin,Total 0.5 mg/dl (0.2-1.0); Blood Urea Nitrogen 67.0 mg/dl (6-23); Calcium 8.3 mg/dl (8.6-10.3); Carbon Dioxide 27.0 mmol/L (21-32); Chloride 102.0 mmol/L (98-107); Creatinine Clr Calc Pharmacy 21.6 ml/min; Glucose 127.0 mg/dl (70-99(Fasting)); Magnesium 1.9 mg/dl (1.7-2.4); Potassium 4.3 mmol/L (3.5-5.1); Sodium 136.0 mmol/L (136-145); Total Protein 5.5 gm/dl (6.0-8.3)
--- NOTE | 2024-10-28 16:14 | CT Scan Report ---
CT head without contrast History: Trauma Comparison: None Technique: Using multidetector thin collimation helical acquisition technique, axial, coronal and sagittal CT images from the skull base to the vertex were obtained without intravenous contrast. Dose reduction techniques were achieved by using automatic exposure control and/or adjustment of mA and/or kV according to patient size and/or use of iterative reconstruction technique. Findings: No intracranial hemorrhage, mass-effect, or midline shift. The ventricles are proportionate to the cerebral sulci. The lopez to white matter differentiation of the cerebral hemispheres is preserved. The basal cisterns are patent. There is moderate cerebral atrophy. Moderate, patchy low-attenuation changes in the white matter, most suggestive of sequelae of chronic small vessel ischemic disease. The visualized paranasal sinuses are clear. Mastoid air cells are clear. Impression: No acute intracranial pathology. Electronically signed by Geoff Delacruz 10-28-2024 4:14 PM
--- NOTE | 2024-10-28 16:16 | CT Scan Report ---
CT cervical spine without IV contrast History: Trauma Comparison: None Technique: Using multidetector thin collimation helical acquisition technique, axial, coronal and sagittal CT images through the cervical spine were obtained without intravenous contrast. Dose reduction techniques were achieved by using automatic exposure control and/or adjustment of mA and/or kV according to patient size and/or use of iterative reconstruction technique. Findings: The cervical vertebrae are normally aligned. Normal cervical lordosis. No acute fracture or subluxation. No prevertebral edema. Severe degenerative disc changes at C6-7, associated with an anterior bridging osteophyte. Moderate hypertrophic multilevel degenerative facet changes noted on the left. No abnormality of the paraspinous soft tissues. Ovoid nodular lesion. About the posterior right thyroid gland, is a 3.4 cm low attenuating Impression: No acute fracture or traumatic subluxation. An ovoid 3.4 cm nodular lesion about the posterior right thyroid gland, may represent a thyroid or parathyroid nodule. Recommend follow-up thyroid ultrasound. Electronically signed by Geoff Delacruz 10-28-2024 4:16 PM
[2024-10-28 16:21] LABS: INR 1.0 (0.9-1.1); Partial Thromboplastin Time 27 Seconds (21-31); Prothrombin Time 10.7 Seconds (9.0-12.0)
[2024-10-28] MEDS: SODIUM CHLORIDE 0.9% 500 ML IV ONE (16:38)
[2024-10-28 18:11] LABS: Influenza A virus by PCR Negative (Neg); Influenza B virus by PCR Negative (Neg); SARS CoV2 RNA(COVID-19) Ceph POSITIVE (Negative)
[2024-10-28 18:20] LABS: Appearance Urine Clear (Clear); Glucose Urine UA Negative (Negative)
--- NOTE | 2024-10-28 18:30 | History & Physical Report ---
Date of Service October 28, 2024 Assessment & Plan (1) Syncope: (2) Orthostatic hypotension: (3) PAF (paroxysmal atrial fibrillation): (4) T-cell large granular lymphocytic leukemia: (5) DAISY (obstructive sleep apnea): (6) CAD (coronary artery disease) of artery bypass graft: (7) CKD (chronic kidney disease) stage 4, GFR 15-29 ml/min: (8) HTN (hypertension), benign: Rebecca Jones is an 89yo M with PMH of HFrEF, paroxysmal A-fib, CKD stage 4, T-cell large granular lymphocytic leukemia, HTN who presents to the hospital for syncope. He notes at home BPs have been lower than usual and that his symptoms are exacerbated by standing or walking right after standing. He is currently being managed for suspected orthostatic hypotension. #Syncope #Orthostatic Hypotension -Cosyntropin testing in AM -consider IV fluids if BPs stay soft -consider dexamethasone after cosyntropin testing -CMP, CBC with diff in AM -holding all BP lowering meds for now #Heart Failure with Reduced Ejection Fraction #Paroxysmal A-fib -guideline recommend management complicated by kidney function and concern for orthostatic hypotension #CAD with 3 vessel CABG -continue atorvastatin 40mg daily -continue aspirin 81mg daily #HTN -hold olmesartan 5mg -hold tamsulosin 0.4mg -hold torsemide 20mg #CKD stage 4 -stable, will monitor #T-cell large granular lymphocytic leukemia -on methotrexate at home, holding for now -stable, will monitor #DAISY -CPAP per protocol at bedtime PT/OT evaluation ordered, appreciate recs Dispo: med-surg tele Diet: heart healthy DVT prophylaxis: IV heparin Code Status: conditional History of Present Illness Primary Care Provider: Kylie Gibbs MD Mr. Shoemaker is an 89yo gentleman with PMH of HFrEF, paroxysmal A-fib, CKD stage 4, T-cell large granular lymphocytic leukemia, HTN who presents to the hospital for syncope. He apparently felt like himself until Sunday when he notes two episodes of passing out but regaining consciousness before hitting the floor. His symptoms are exacerbated by standing or walking right after standing. Pt notes feeling like his legs are giving out during those episodes. He also states at home BPs have been lower than usual, ranging in the 90s/40s but are usually 120-130s/60-70s. Pt says he has been trying to stay hydrated but is unsure if he is drinking enough fluids at home. He was given a fluid bolus in the ED and states he feels better. Pt does not report any prodrome prior to the syncope including cough, defection, or Valsalva maneuvers. He was diagnosed with Covid-19 in early October and was given a 10-day course of dexamethasone and a 5-day course of keflex. Pt stopped taking torsemide 2 days ago as per nephrology recommendations in the outpatient setting. No history of of head, back pain, tonic-clonic movements, tongue biting, or bladder or bowel incontinence noted. He denies dizziness, CP, palpitations/flutters/skipped beats, N/V/C/D, abdominal pain, complaints. Allergies Allergy/AdvReac Type Severity Reaction Status Date / Time No Known Allergies Allergy Verified 10/23/24 14:37 Home Medications Medication Instructions Recorded Confirmed Type aspirin 81 mg tablet,delayed 81 mg PO QAM 07/23/19 10/28/24 History release atorvastatin 40 mg tablet 40 mg PO QPM 07/23/19 10/28/24 History coenzyme Q10 100 mg capsule (Co 100 mg PO QAM 07/23/19 10/28/24 History Q-10) finasteride 5 mg tablet 5 mg PO QPM 07/23/19 10/28/24 History vitamins A,C,S-xocu-zjkixx 4,296 1 cap PO BID 07/23/19 10/28/24 History mcg-226 mg-90 mg capsule (PreserVision AREDS) alprazolam 0.5 mg tablet 0.5 mg PO HS Anxiety 01/10/24 10/28/24 History citalopram 10 mg tablet 10 mg PO QAM 01/10/24 10/28/24 History tamsulosin 0.4 mg capsule 0.4 mg PO QAM 06/02/24 10/28/24 History tramadol 50 mg tablet 50 mg PO BID PRN pain #60 tabs 07/28/24 10/28/24 Rx allopurinol 100 mg tablet 100 mg PO QAM 10/23/24 10/28/24 History benzonatate 100 mg capsule 100 mg PO TID PRN Cough 10/23/24 10/28/24 History lutein 10 mg tablet 10 mg PO QPM 10/23/24 10/28/24 History folic acid 400 mcg tablet 0.4 mg PO QAM 10/28/24 10/28/24 History magnesium oxide 500 mg PO QAM 10/28/24 10/28/24 History mecobalamin (vitamin B12) 1,000 1,000 mcg PO QAM 10/28/24 10/28/24 History mcg chewable tablet (B12 Active) methotrexate sodium 2.5 mg tablet 12.5 mg PO WK 10/28/24 10/28/24 History olmesartan 5 mg tablet 5 mg PO QAM 10/28/24 10/28/24 History torsemide 20 mg tablet 20 mg PO QAM 10/28/24 10/28/24 History Past Med/Surg History Problem List (Updated 10/28/24 @ 18:42 by Geoff Acevedo MD) Pleural effusion (Acute) Elevated troponin I level (Acute) Acidosis, lactic (Acute) Anemia (Acute) Syncope (Acute) Orthostatic hypotension (Acute) Hypoxemia PAF (paroxysmal atrial fibrillation) Chronic diastolic heart failure Back pain Acute kidney injury Proteinuria Vitamin D deficiency Anxiety T-cell large granular lymphocytic leukemia DAISY (obstructive sleep apnea) CAD (coronary artery disease) of artery bypass graft by pass in 2019 CKD (chronic kidney disease) stage 4, GFR 15-29 ml/min Aplastic anemia Acute bronchitis due to Rhinovirus Persistent cough Spinal stenosis, lumbar region with neurogenic claudication (Chronic) High cholesterol HTN (hypertension), benign Medical History Sepsis Pneumonia Bilateral cataracts Afib Surgical History History of back surgery S/P triple vessel bypass Family History Mother Hypertension Sister Breast cancer Social History Smoking Status: Never smoker Second Hand Exposure: No; Hx Alcohol Use: No Hx Substance Use: No Preferred Language: Japanese Communication Ability: Effective Visual Impairment: Limited Hearing Ability: Normal 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 current occupational status: retired Other Information That Helps Us Care for You: No Feels Safe at Home: Yes Safety Concerns: Feels Safe At This Time Assistive Devices: Denture - Upper and Denture - Lower Review of Systems Review of Systems: per HPI Physical Exam Physical Exam: GA: AAOx4, well-groomed, appears anxious HEENT: sclera anicteric, EOMI, patent nares, moist mucus membranes CVS: S1 and S2 heard, distant heart sounds no murmurs, rubs, or gallops appreciated, Pulse: regular rate and rhythm, 2+ B/L RESP: pursed lip breathing, vesicular breath sounds, no wheezes, rhonchi, or rales ABD: nontender, nondistended, normoactive bowel sounds SKIN: dry, warm, no edema or rashes noted NEURO: no focal deficits noted Results & Data Results & Data Vital Signs (Past 12 Hours) Vital Signs Temp Pulse Pulse Resp BP BP Pulse Ox 10/28/24 18:14 58 L 168/68 H 99 10/28/24 17:57 58 L 14 99 10/28/24 17:45 57 L 16 100 10/28/24 17:33 64 19 98 10/28/24 17:24 63 16 98 10/28/24 17:24 63 16 98 10/28/24 17:21 61 21 99 10/28/24 17:13 63 16 118/57 L 10/28/24 15:46 76 10/28/24 15:25 37 C 73 25 H 125/62 100 O2 Del Method 10/28/24 18:14 10/28/24 17:57 10/28/24 17:45 10/28/24 17:33 10/28/24 17:24 Room Air 10/28/24 17:24 10/28/24 17:21 10/28/24 17:13 10/28/24 15:46 10/28/24 15:25 Room Air Code Status & VTE Plan VTE Prophylaxis Plan VTE Prophylaxis will be ordered: Yes Supervising Physician Co-Signing Physician Notes Patient was seen and examined independently I discussed the case with Dr. Geoff Acevedo PGY1 I reviewed pertinent past medical social family history and also the plan of care and agree with the plan of care. Patient presents with syncope and fall. Recent treatment for COVID with outpatient dexamethasone and antibiotics. Patient also has significant issues with pursed lip breathing but never has been diagnosed with COPD. Patient was markedly dyspneic when ambulating to the bathroom and back. Physical exam finds his cardiac exam to be regular without significant murmurs his lungs had poor air movement as mentioned for sleep breathing's and significant respiratory distress with ambulation. Extremities are with trace edema. Assessment going to be syncope. Will admit to rule out cardiogenic syncope by telemetry considering echocardiogram. Will evaluate adrenal insufficiency because of recent steroid use with the morning cortisol considering cosyntropin stimulation test. Will rule out infectious etiologies including urinary tract infection. With regard to his pursed lip breathing we may consider CT scan of his chest with out contrast and possibly pulmonary consultation. At best we may consider adding disease modifying medication prior to his diagnosis of COPD with pending outpatient pulmonary function testing. Any exceptions will be noted below Resident Activity Tracking Resident Involvement: Resident Care Provided Care Provided: Adult Hospital Medicine (1) Syncope Syncope type: unspecified Qualified Code(s): R55 - Syncope and collapse (6) CAD (coronary artery disease) of artery bypass graft Associated angina: unspecified whether angina present [place] vs. transplanted heart: unspecified whether [place] or transplanted heart Qualified Code(s): I25.810 - Atherosclerosis of coronary artery bypass graft(s) without angina pectoris
[2024-10-28] MEDS ORDERED: POLYETHYLENE (MIRALAX) 17 GM PACK PO PRN (20:58)
[2024-10-28] MEDS ORDERED: MELATONIN 3 MG TAB PO PRN (20:58)
[2024-10-28] MEDS ORDERED: ONDANSETRON INJ 2 MG/ML 2 ML VIAL IV PRN (20:58)
[2024-10-28] MEDS ORDERED: BENZONATATE 100 MG CAPSULE PO PRN (20:58)
[2024-10-28] MEDS ORDERED: ACETAMINOPHEN 325 MG TAB PO PRN (20:58)
[2024-10-28] MEDS: FINASTERIDE 5 MG TAB PO SCH (21:25)
[2024-10-28] MEDS: HEPARIN SOD 5,000 UNIT/0.5 ML VIAL SQ SCH (21:25)
[2024-10-28] MEDS: ATORVASTATIN 40 MG TAB PO SCH (21:25)
[2024-10-29 03:32] VITALS: RESP 18
[2024-10-29 08:11] VITALS: BP 102/49
[2024-10-29 09:02] LABS: Hematocrit (blood only) 31.2 % (42.0-52.0); Hemoglobin 10.0 g/dl (14.0-18.0); Immature Granulocytes # (auto) 0.03 K/uL (0.01-0.20); Immature Granulocytes % (auto) 0.4 %; Mean Corpuscular Hemoglobin 34.8 pg (25.0-34.0); Mean Corpuscular Volume 108.7 fL (80.0-100.0); Platelet Count 182 K/uL (130-400); RDW Standard Deviation 58.4 fL (36.4-46.3); Red Blood Count 2.87 M/uL (4.70-6.10); White Blood Count 8.47 K/ul (4.8-10.8)
[2024-10-29 09:17] LABS: Alanine Aminotransferase 39.0 U/L (7-52); Albumin Globulin Ratio 1.5 (0.9-2); Alkaline Phosphatase 66.0 U/L (34-104); Anion Gap 6.0 (3-11); Bilirubin,Total 0.7 mg/dl (0.2-1.0); Blood Urea Nitrogen 60.0 mg/dl (6-23); Calcium 8.4 mg/dl (8.6-10.3); Carbon Dioxide 28.0 mmol/L (21-32); Chloride 104.0 mmol/L (98-107); Creatinine Clr Calc Pharmacy 22.9 ml/min; Globulin 2.3 gm/dl (2.5-4.0); Glucose 115.0 mg/dl (70-99(Fasting)); Potassium 4.3 mmol/L (3.5-5.1); Sodium 138.0 mmol/L (136-145); Total Protein 5.8 gm/dl (6.0-8.3)
[2024-10-29] MEDS: COSYNTROPIN 250 MCG in SYRINGE 4 ML IV ONE (09:20)
[2024-10-29] MEDS: CYANOCOBALAMIN (B-12) 500 MCG TABLET PO SCH (09:20)
[2024-10-29] MEDS: ASPIRIN 81 MG ECTAB PO SCH (09:20)
[2024-10-29] MEDS: MAGNESIUM OXIDE 400 MG TAB PO SCH (09:20)
[2024-10-29] MEDS: CITALOPRAM 20 MG TAB PO SCH (09:20)
[2024-10-29] MEDS: FOLIC ACID 400 MCG TAB PO SCH (09:20)
[2024-10-29 11:32] VITALS: TEMP 98.6; O2SAT 95
[2024-10-29 11:39] LABS: A calco-baum cmplx NotReported Not Detected (NotDetected); Bact fragilis Not Reported Not Detected (NotDetected); Blood Culture Id Panel See PCR Comment (NotDetected); C auris Not Reported Not Detected (NotDetected); Calbicans Not Reported Not Detected (NotDetected); Candida glabrata Not Reported Not Detected (NotDetected); Candida krusei Not Reported Not Detected (NotDetected); Cneoformans/gatti Not Reported Not Detected (NotDetected); Cparapsilosis Not Reported Not Detected (NotDetected); Ctropicalis Not Reported Not Detected (NotDetected); E cloacae compx Not Reported Not Detected (NotDetected); Efaecalis Not Reported Not Detected (NotDetected); Efaecium Not Reported Not Detected (NotDetected); Enterobacterales Not Reported Not Detected (NotDetected); Escherichia coli Not Reported Not Detected (NotDetected); H influenzae Not Reported Not Detected (NotDetected); K aerogenes Not Reported Not Detected (NotDetected); Koxytoca Not Reported Not Detected (NotDetected); Kpneumoniae grp Not Reported Not Detected (NotDetected); Lmonocyt Not Reported Not Detected (NotDetected); N meningitidis Not Reported Not Detected (NotDetected); P aeruginosa Not Reported Not Detected (NotDetected); Proteus spp Not Reported Not Detected (NotDetected); Salmonella spp Not Reported Not Detected (NotDetected); Staph lugdunensis Not Reported Not Detected (NotDetected); Staph spp. Not Reported DETECTED (NotDetected); Staphaureus Not Reported Not Detected (NotDetected); Staphepi Not Reported DETECTED (NotDetected); Staphylococcus epidermidis DETECTED (NotDetected); Staphylococcus spp. DETECTED (NotDetected); Stenmaltophilia Not Reported Not Detected (NotDetected); Strep agal(GrpB) Not Reported Not Detected (NotDetected); Strep pneum Not Reported Not Detected (NotDetected); Strep pyog (GrpA) Not Reported Not Detected (NotDetected); Strep spp Not Reported Not Detected (NotDetected)
[2024-10-29 11:59] LABS: mecAC Resistant Gene DETECTED (NotDetected)
[2024-10-29 16:41] VITALS: PULSE 74
--- NOTE | 2024-10-29 17:04 | Discharge Summary ---
Date of Service October 29, 2024 Admission HPI Per Admitting Provider Mr. Shoemaker is an 89yo gentleman with PMH of HFrEF, paroxysmal A-fib, CKD stage 4, T-cell large granular lymphocytic leukemia, HTN who presents to the hospital for syncope. He apparently felt like himself until Sunday when he notes two episodes of passing out but regaining consciousness before hitting the floor. His symptoms are exacerbated by standing or walking right after standing. Pt notes feeling like his legs are giving out during those episodes. He also states at home BPs have been lower than usual, ranging in the 90s/40s but are usually 120-130s/60-70s. Pt says he has been trying to stay hydrated but is unsure if he is drinking enough fluids at home. He was given a fluid bolus in the ED and states he feels better. Pt does not report any prodrome prior to the syncope including cough, defection, or Valsalva maneuvers. He was diagnosed with Covid-19 in early October and was given a 10-day course of dexamethasone and a 5-day course of keflex. Pt stopped taking torsemide 2 days ago as per nephrology recommendations in the outpatient setting. No history of of head, back pain, tonic-clonic movements, tongue biting, or bladder or bowel incontinence noted. He denies dizziness, CP, palpitations/flutters/skipped beats, N/V/C/D, abdominal pain, complaints. Admission Exam Per Admitting Provider GA: AAOx4, well-groomed, appears anxious HEENT: sclera anicteric, EOMI, patent nares, moist mucus membranes CVS: S1 and S2 heard, distant heart sounds no murmurs, rubs, or gallops appreciated, Pulse: regular rate and rhythm, 2+ B/L RESP: pursed lip breathing, vesicular breath sounds, no wheezes, rhonchi, or rales ABD: nontender, nondistended, normoactive bowel sounds SKIN: dry, warm, no edema or rashes noted NEURO: no focal deficits noted Principal Diagnosis Orthostatic Hypotension Discharge Exam GA: AAOx4, well-groomed, no apparent distress HEENT: sclera anicteric, EOMI, patent nares, moist mucus membranes CVS: S1 and S2 heard, distant heart sounds no murmurs, rubs, or gallops appreciated, Pulse: regular rate and rhythm, 2+ B/L RESP: pursed lip breathing, vesicular breath sounds, no wheezes, rhonchi, or rales ABD: nontender, nondistended, normoactive bowel sounds SKIN: dry, warm, no edema or rashes noted NEURO: no focal deficits noted Discharge Data Allergies Allergy/AdvReac Type Severity Reaction Status Date / Time No Known Allergies Allergy Verified 10/23/24 14:37 Consultations 10/28/24 16:49 ED Decision to Admit Stat 10/29/24 11:12 [facility] Referral Routine Ordered Studies 10/28/24 15:23 CT cervical spine wo con Stat CT head/brain wo con Stat Hospital Course (1) Syncope: (2) Orthostatic hypotension: (3) PAF (paroxysmal atrial fibrillation): (4) Chronic diastolic heart failure: (5) T-cell large granular lymphocytic leukemia: (6) CKD (chronic kidney disease) stage 4, GFR 15-29 ml/min: Rebecca Jones is an 89yo M with PMH of Heart Failure with mildly reduced Ejection Fraction, paroxysmal A-fib, CKD stage 4, T-cell large granular lymphocytic leukemia, HTN who presents to the hospital for syncope. He notes at home BPs have been lower than usual and that his symptoms are exacerbated by standing or walking right after standing. He is currently being managed for suspected orthostatic hypotension. #Syncope #Orthostatic Hypotension -bedside orthostatics improved -Cosyntropin testing: negative for adrenal insufficiency -holding all BP lowering meds for now -encourage taking time to stand from seated position and from sitting to standing to walking #Heart Failure with Reduced Ejection Fraction #Paroxysmal A-fib -guideline recommend management complicated by kidney function and concern for orthostatic hypotension -follow-up outpatient with Cardiology -encourage following with [facility] Failure Clinic outpatient -encourage taking daily weights and following up if weights >2lbs in one day or >5lbs in one week -encourage low salt heart healthy diet -activity per tolerance -consider cardiac rehab referral as outpatient #CAD with 3 vessel CABG -continue atorvastatin 40mg daily -continue aspirin 81mg daily #HTN -hold olmesartan 5mg -hold tamsulosin 0.4mg -hold torsemide 20mg #CKD stage 4 -stable, will monitor #T-cell large granular lymphocytic leukemia -on methotrexate at home -stable #DAISY -CPAP at bedtime #Thyroid Nodule Cervical Spine CT: An ovoid 3.4 cm nodular lesion about the posterior right thyroid gland, may represent a thyroid or parathyroid nodule. Consider follow-up thyroid ultrasound. -Follow-up with PCP outpatient Total Time Total Time Spent Total Time Spent (In Minutes): see attending physician attestation Discharge Plan Discharge Items Patient Disposition: Home - Self-Care Reason For Visit: SYNCOPE Discharge Diagnosis: Orthostatic Hypotension Condition on Discharge: Fair Activity: Resume your previous activity Non-emergency contact: Primary Care Provider Call non-emergency contact if: your symptoms worsen Follow-up/Referrals: Néstor Rendon DO [Physician] - Kylie Gibbs MD [Primary Care Provider] - 11/05/24 11:00 am Diet: Heart Healthy and Low Sodium (2gm) Addtl Attending Provider Instructions: You presented to the hospital due to syncope (passing out) and low blood pressures. Your workup did not show any obvious source for your symptoms. You were given some IV fluids in the emergency room and you felt better after receiving the fluids. We held your blood pressure medications because your blood pressures have been on the lower side compared to your normal. Your blood pressures have been stable during your stay in the hospital. We did not add any medications to your regimen, but please HOLD your olmesartan, torsemide, and tamsulosin until you follow-up with your primary care doctor, cardiology, and/or nephrology. Please follow-up with your primary care doctor soon after discharge to discuss your hospital stay. Please keep your Cardiology appointment scheduled for next week. These providers may make adjustments to your medication or make diet recommendations. You will also receive a call from our Heart Failure Clinic; we think you would strongly benefit from establishing with them for closer management of your heart failure medications. You should eat a low salt diet (less than 2 grams of salt per day). You should eat and drink fluids to maintain adequate nutrition. At the same time, please monitor your weight and reach out to your doctor if you gain more than 2 lbs in one day or more than 5 lbs over one week. You should take your time when standing from a seated position or sitting to standing and walking to minimize the chance of you getting lightheaded. Your CT scan showed a thyroid nodule. This is a common finding. You should follow-up with your primary care doctor to see about further workup. We will document this in your discharge summary to make your primary care doctor aware. Thank you for allowing us to participate in your care. Pending Studies at Discharge: No Stand-Alone Forms: My [facility], Smoking Cessation Medications and DC Order Prescriptions: Continued PreserVision AREDS [id number] rudy-dx-ifoc capsule 1 cap PO BID aspirin 81 mg tablet,delayed release (DR/EC) 81 mg PO QAM finasteride 5 mg tablet 5 mg PO QPM atorvastatin 40 mg tablet 40 mg PO QPM coenzyme Q10 [Co Q-10] 100 mg capsule 100 mg PO QAM allopurinol 100 mg tablet 100 mg PO QAM benzonatate 100 mg capsule 100 mg PO TID PRN (Reason: Cough) lutein 10 mg tablet 10 mg PO QPM Rx Instructions: give with meal/snack tramadol 50 mg tablet 50 mg PO BID PRN (Reason: pain) Qty: 60 0RF methotrexate sodium 2.5 mg tablet 12.5 mg PO WK Rx Instructions: 5 TABLET DOSE ON MONDAYS magnesium oxide 500 mg magnesium Tablet 500 mg PO QAM folic acid 400 mcg tablet 0.4 mg PO QAM mecobalamin (vitamin B12) [B12 Active] 1,000 mcg tablet,chewable 1,000 mcg PO QAM citalopram 10 mg tablet 10 mg PO QAM alprazolam 0.5 mg tablet 0.5 mg PO HS Held tamsulosin 0.4 mg capsule 0.4 mg PO QAM Hold Instructions: Resume on 11/19/24. do not take until directed to do so by one of your outpatient doctors torsemide 20 mg Tablet 20 mg PO QAM Hold Instructions: Resume on 11/19/24. do not take until directed to do so by one of your outpatient doctors olmesartan 5 mg Tablet 5 mg PO QAM Hold Instructions: Resume on 11/19/24. do not take until directed to do so by one of your outpatient doctors Discharge Orders: Discharge Order- CHF (Routine); Ordered 10/29/24 Ordered By: Austin Haskins Admission Data Admit Date/Time: 10/28/24 18:24 Attending Provider: Andrea Foley Admit Provider: Geoff Acevedo Primary Care Provider: Kylie Gibbs Other Providers: Ino Lopez; Nyla Estrella Other Interventions: Discharge Summary Assessment (RN) Last Done: 10/29/24 16:30 Resident Activity Tracking Resident Involvement: Resident Care Provided Care Provided: Adult Hospital Medicine
--- NOTE | 2024-11-01 08:12 | Electrocardiogram Report ---
Test Reason : Blood Pressure : */* mmHG Vent. 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
== END 2024-10-29 17:45 | disposition home or self-care (01) | DRG 312 ==
LOC: ED 15:16 → SUATTDRO 18:24 → EDINP 18:24 → 2W 20:45